=== PATIENT | female | born 1935 | race Caucasian/White ===

== ENCOUNTER 2018-07-17 13:19 | Inpatient (IN) | payer MEDICARE, MEDICAID ==
--- NOTE | 2018-07-17 13:58 | ED Physician Chart ---
ED Chief Complaint/HPI - Patient Information Date Seen:: 07/17/18 Time Seen:: 13:53 Chief Complaint:: right pain History of Present Illness:: this is an 83 yr old female with a complaint of right pain and swelling which was operated on june 05, 2018. This patient was sent from a senior care for an evaluation and treatment of her complaint. she has a history of dementia , diabetes,hypertension and hyperlipidema. Allergies:: Allergies Allergy/AdvReac Type Severity Reaction Status Date / Time naproxen [From Naprosyn] Allergy Verified 07/17/18 13:33 Complex B Allergy Uncoded 07/17/18 13:35 Vitals:: Vital Signs - 8 hr 07/17/18 13:35 Temp 98.2 F HR 62 RR 16 BP 132/56 O2 Sat % 96 Historian:: Medical Records Review:: Nurse's Note Reviewed, Old Chart Reviewed, Transfer documents Reviewed ED Review of Systems - Review of Systems General/Constitutional: No fever, No chills, No weight loss, No weakness, No diaphoresis, No edema, No loss of appetite Skin: No skin lesions, No rash, No bruising Head: No headache, No light-headedness Eyes: No loss of vision, No pain, No diplopia ENT: No earache, No nasal drainage, No sore throat, No tinnitus Neck: No neck pain, No swelling, No thyromegaly, No stiffness, No mass noted Cardio Vascular: No chest pain, No palpitations, No PND, No orthopnea, No edema Pulmonary: No SOB, No cough, No sputum, No wheezing GI: No nausea, No vomiting, No diarrhea, No pain, No melena, No hematochezia, No constipation, No hematemesis G/U: No dysuria, No frequency, No hematuria Musculoskeletal: Bone or joint pain (right hip pain), No back pain, No muscle pain Endocrine: No polyuria, No polydipsia Psychiatric: No prior psych history, No depression, No anxiety, No suicidal ideation Hematopoietic: No bruising, No lymphadenopathy Allergic/Immuno: No urticaria, No angioedema Neurological: No syncope, No focal symptoms, No weakness, No paresthesia, No headache, No seizure, No dizziness, No confusion, No vertigo ED Past Medical History - Past Medical History Obtainable: Yes Past Medical History: HTN, DM, CAD, CVA/TIA, Dyslipidemia, PUD/GERD, Dementia, Other (osteoporosis) Family History: None Social History: Non Smoker, No Alcohol, No Drug Use, Care Facility Surgical History: None, HIP Family Medical History - Family Member Father Living Status: ED Physical Exam - Physical Examination General/Constitutional: Awake, Well-developed, well-nourished, Alert, No distress, GCS 15, Non-toxic appearing, Ambulatory Head: Atraumatic Eyes: Lids, conjuctiva normal, PERRL, EOMI Skin: Nl inspection, No rash, No skin lesions, No ecchymosis, Well hydrated, No lymphadenopathy ENMT: External ears, nose nl, Nasal exam nl, Lips, teeth, gums nl Neck: Nontender, Full ROM w/o pain, No JVD, No nuchal rigidity, No bruit, No mass, No stridor Respiratory: Nl effort/Exclusion, Clear to Auscultation, No Wheeze/Rhonchi/Rales Cardio Vascular: RRR, No murmur, gallop, rubs, NL S1 S2 GI: No tenderness/rebounding/guarding, No organomegaly, No hernia, Normal BS's, Nondistended, No mass/bruits, No McBurney tenderness : No CVA tenderness Extremities: No tenderness or effusion, Full ROM, normal strength in all extremities, No edema, Normal digits & nails Other Extremities comments:: right hip area is a clean well healed incision site with an area of the most proximal end of the incision open draining yellow exudate is noted. on palpation no pain could be elicited. Neuro/Psych: Alert/oriented, DTR's symmetric, Normal sensory exam, Normal motor strength, Judgement/insight normal (slow respones and unclear), Mood normal, Normal gait, No focal deficits Misc: Normal back, No paraspinal tenderness ED Labs/Radiology/EKG Results - Radiology Results Results: chest x-ray = no acute disease noted. Comments:: ct scan of the right thigh = finding consistent with an infection of the incision site of the right thigh - EKG Interpretations EKG Time:: 13:55 Rate & Rhythm: rate 73, sinus [place]: left Intervals: all wide complexes with no ectopy ED Assessment - Assessment General Assessment: wound infection of a post-op incision site. ED Septic Shock - . Is Septic Shock (SBP<90, OR Lactate>4 mmol\L) present?: No - <6hrs of presentation: Vital Signs: Vital Signs - 8 hr 07/17/18 13:35 Temp 98.2 F HR 62 RR 16 BP 132/56 O2 Sat % 96 ED Reassessment (Disposition) - Reassessment Reassessment Condition:: Unchanged - Diagnosis Diagnosis:: right hip wound infection - Patient Disposition Discharge/Transfer:: Acute Care w/in this hosp Admitted to:: Med/Surg Admitting Medical Physician:: Cherelle Bella Condition at Disposition:: Unchanged
[2018-07-17 14:07] LABS: % BASOPHILS 0.6 % (0.0-2.0); % LYMPHOCYTES 16.9 % (20.0-50.0); % MONOCYTES 4.3 % (2.0-10.0); % NEUTROPHILS 73.2 % (40.0-80.0); BASOPHILE ABSOLUTE 0.1 Th/cumm (0-0.2); EOSINOPHILE ABSOLUTE 0.5 Th/cmm (0.1-0.4); HEMATOCRIT 36.1 % (41.0-60); HEMOGLOBIN 12.3 gm/dL (12-16); LYMPHOCYTE ABSOLUTE 1.5 Th/cmm (1.5-3.0); MEAN CELL VOLUME 89.7 fl (81-100); MEAN CORPUSCULAR HEMOGLOBIN 30.6 pg (27.0-31.0); MEAN CORPUSCULAR HGB CONC 34.1 pg (28.0-36.0); MEAN PLATELET VOLUME 7.4 fl; MONOCYTE ABSOLUTE 0.4 Th/cmm (0.3-1.0); NEUTROPHILE ABSOLUTE 6.5 Th/cmm (1.8-8.0); PLATELET COUNT 238 Th/cmm (150-400); RED BLOOD COUNT 4.02 Mil/cmm (3.80-5.20); RED CELL DISTRIBUTION WIDTH 13.7 % (11.5-20.0)
[2018-07-17 14:19] LABS: INR 1.03 (0.5-1.4); PROTHROMBIN TIME (TEST) 10.7 SECONDS (9.5-11.5)
[2018-07-17 14:30] LABS: ALBUMIN 3.4 gm/dL (3.7-5.3); ALKALINE PHOSPHATASE 131 U/L (34-104); BILIRUBIN,TOTAL 0.3 mg/dL (0.3-1.0); BUN - UREA NITROGEN 14 mg/dL (7-25); CALCIUM SERUM 9.2 mg/dL (8.6-10.3); CARBON DIOXIDE 25.7 mEq/L (21.0-31.0); CHLORIDE 102 mEq/L (98-107); CREATININE - SERUM 0.5 mg/dL (0.6-1.2); GLUCOSE 210 mg/dL (70-105); POTASSIUM SERUM 3.7 mEq/L (3.5-5.1); SGOT 15 U/L (13-39); SGPT/ALT 11 U/L (7-52); SODIUM SERUM 135 mEq/L (136-145); TOTAL PROTEIN,SERUM 6.9 gm/dL (6.0-8.3)
[2018-07-17] MEDS ORDERED: Dextrose 50% 50 mL Abboject IVP PRN (17:06)
[2018-07-17] MEDS ORDERED: POLYETHYLENE GLYCOL 3350 17 GM PACK PO PRN (17:06)
[2018-07-17] MEDS ORDERED: Acetaminophen 500 MG TAB PO PRN (17:06)
[2018-07-17] MEDS ORDERED: Magnesium Hydroxide (MOM) 30 mL UDC PO PRN (17:06)
[2018-07-17] MEDS ORDERED: ACETAMINOPHEN 650 MG PO PRN (17:06)
[2018-07-17] MEDS ORDERED: Fleet Enema 135 mL RC PRN (17:06)
[2018-07-17] MEDS ORDERED: Non-Formulary Item 1 EA (Atorvastatin Calcium [Lipitor] 20 MG) PO SCH (21:00)
[2018-07-17] MEDS ORDERED: INSULIN HUMAN REGULAR 100 UNITS/ML UNIT SUBQ SCH (21:00)
[2018-07-17] MEDS ORDERED: [UNRECOGNIZED DRUG - OTHER] SQ SCH (21:00)
[2018-07-17] MEDS ORDERED: INSULIN GLARGINE HUM REC ANLOG 10 UNIT SQ SCH (21:00)
[2018-07-17] MEDS: Morphine Sulfate 2 mg/mL 1mL Syr IVP SCH (22:05)
--- NOTE | 2018-07-17 23:39 | Consultation ---
Consult Note - Consult Note Service Date: 07/17/18 Consult Note: PHYSICIAN Consultation Note: Date of Admission: 07/17/18 Purpose of Consultation: Chief Complaint: History of Present Illness: Patient MAY SILVERMAN was admitted to location Medical[facility]Surgical Unit I with RIGHT HIP INFECTION. Past Medical History: Allergies Allergy/AdvReac Type Severity Reaction Status Date / Time naproxen [From Naprosyn] Allergy Verified 07/17/18 13:33 Complex B Allergy Uncoded 07/17/18 13:35 Vital Signs Temp 97 F 07/17/18 18:40 Pulse 69 07/17/18 18:40 Resp 18 07/17/18 18:40 BP 135/47 07/17/18 18:40 Pulse Ox 94 07/17/18 18:40 Intake & Output 07/17/18 07/17/18 07/18/18 06:59 18:59 06:59 Intake Total 250 Balance 250 Weight (lbs) 58.967 kg Intake: Intake, IV Amount 250 Vancomycin HCl 1 gm In 250 Sodium Chloride 0.9% 250 ml @ 165 mls/hr IV ONCE ONE Rx#:[id number] Other: Stool Characteristics Soft Brown Weight Source Estimated Laboratory Results - last 24 hr 07/17/18 07/17/18 07/17/18 13:58 13:58 13:58 WBC 9.0 RBC 4.02 Hgb 12.3 Hct 36.1 L MCV 89.7 MCH 30.6 MCHC Differential 34.1 RDW 13.7 Plt Count 238 MPV 7.4 Neutrophils % 73.2 Lymphocytes % 16.9 L Monocytes % 4.3 Eosinophils % 5.0 Basophils % 0.6 PT 10.7 INR 1.03 Sodium 135 L Potassium 3.7 Chloride 102 Carbon Dioxide 25.7 Anion Gap 11.0 BUN 14 Creatinine 0.5 L Est GFR ( Amer) TNP Est GFR (Non-Af Amer) TNP BUN/Creatinine Ratio 28.0 Glucose 210 H POC Glucose Calcium 9.2 Total Bilirubin 0.3 AST 15 ALT 11 Alkaline Phosphatase 131 H Troponin I Total Protein 6.9 Albumin 3.4 L Globulin 3.5 Albumin/Globulin Ratio 1.0 TSH 07/17/18 07/17/18 07/17/18 13:58 13:58 22:04 WBC RBC Hgb Hct MCV MCH MCHC Differential RDW Plt Count MPV Neutrophils % Lymphocytes % Monocytes % Eosinophils % Basophils % PT INR Sodium Potassium Chloride Carbon Dioxide Anion Gap BUN Creatinine Est GFR ( Amer) Est GFR (Non-Af Amer) BUN/Creatinine Ratio Glucose POC Glucose 187 H Calcium Total Bilirubin AST ALT Alkaline Phosphatase Troponin I 0.01 Total Protein Albumin Globulin Albumin/Globulin Ratio TSH 3.00 Home Medication Medication Instructions Recorded Type Acetaminophen [Pain Relief 8Hr] 650 mg PO Q4H PRN 07/17/18 History Acetaminophen [Pain Reliever] 500 mg PO Q4H PRN 07/17/18 History Ascorbic Acid 500 mg PO DAILY 07/17/18 History Aspirin [Adult Aspirin] 81 mg PO DAILY 07/17/18 History Atorvastatin Calcium [Lipitor] 20 mg PO HS 07/17/18 History Bisacodyl [Dulcolax 10 Mg Supp] 10 mg RC DAILY PRN 07/17/18 History Calcium Carbonate 2 tab PO DAILY 07/17/18 History Cholecalciferol (Vitamin D3) 1 gm PO DAILY 07/17/18 History [Cholecalciferol] Cyanocobalamin [Vitamin B12] 1,000 mcg PO DAILY 07/17/18 History Dextrose 50 % in Water [Dextrose 25 ml IV STAT PRN PRN 07/17/18 History 50 ml] Docusate Sodium [Colace] 100 mg PO DAILY 07/17/18 History Enalapril Maleate [Vasotec] 5 mg PO DAILY 07/17/18 History Famotidine [Pepcid] 20 mg PO DAILY 07/17/18 History Fleet Enema 135 ml RC Q2D PRN 07/17/18 History Folic Acid [Folate*] 1 mg PO DAILY 07/17/18 History Glucagon,Human Recombinant 1 mg IM STAT PRN PRN 07/17/18 History [Glucagon Emergency Kit] Hydrocodone/APAP 10 mg/325 mg 1 tab PO Q8H PRN 07/17/18 History [[place] 10 mg/325 mg] Insulin Glargine,Hum.rec.anlog 10 unit SQ HS 07/17/18 History [Basaglar Kwikpen U-100] Insulin Lispro [Admelog Solostar] 0 unit SQ ACHS PRN 07/17/18 History Magnesium Hydroxide [Milk of 30 ml PO DAILY PRN 07/17/18 History Magnesia] Multivitamin-Min/Iron/FA/Vit K 1 tab PO DAILY 07/17/18 History [Multi-Day Plus Minerals Tablet] Ondansetron [Zofran ODT] 4 mg PO Q6HR PRN 07/17/18 History Polyethylene Glycol 3350 1 gm PO BID PRN 07/17/18 History Current Medications Generic Name Dose Route Start Last Admin Trade Name Freq PRN Reason Stop Dose Admin Acetaminophen 500 mg 07/17/18 17:06 Tylenol Extra Strength PO 09/15/18 17:05 Q4H PRN Pain (Moderate) Ascorbic Acid 500 mg 07/18/18 09:00 Vitamin C PO 09/16/18 08:59 DAILY [facility] Aspirin 81 mg 07/18/18 09:00 Ecotrin PO 09/16/18 08:59 DAILY [facility] Bisacodyl 10 mg 07/17/18 17:06 Dulcolax 10 Mg Supp RC 09/15/18 17:05 DAILY PRN Constipation Calcium Carbonate 600 mg 07/18/18 09:00 Calcium Carb PO 09/16/18 08:59 DAILY [facility] Cyanocobalamin 1,000 mcg 07/18/18 09:00 Vitamin B12 PO 09/16/18 08:59 DAILY [facility] Dextrose 25 ml 07/17/18 17:06 D50w IVP 09/15/18 17:05 STAT PRN PRN low blood sugar Docusate Sodium 100 mg 07/18/18 09:00 Colace PO 09/16/18 08:59 DAILY [facility] Enalapril Maleate 5 mg 07/18/18 09:00 Vasotec PO 09/16/18 08:59 DAILY [facility] Famotidine 20 mg 07/18/18 09:00 Pepcid PO 09/16/18 08:59 DAILY [facility] Folic Acid 1 mg 07/18/18 09:00 Folate PO 09/16/18 08:59 DAILY [facility] Piperacillin Sod/Tazobactam 50 mls @ 100 mls/hr 07/18/18 00:00 Sod 3.375 gm/ Sodium Chloride IV 09/16/18 00:00 Q6HR [facility] Insulin Aspart 0 units 07/18/18 07:30 Novolog Insulin Sliding Scale SUBQ 09/16/18 07:29 ACHS [facility] Protocol Magnesium Hydroxide 30 ml 07/17/18 17:06 Milk Of Magnesia PO 09/15/18 17:05 DAILY PRN Constipation Miscellaneous 650 mg 07/17/18 17:06 Acetaminophen [Pain Relief 8hr] PO Q4H PRN Pain (Mild) Miscellaneous 20 mg 07/17/18 21:00 Atorvastatin Calcium [Lipitor] PO 09/15/18 20:59 HS [facility] Miscellaneous 1 gm 07/18/18 09:00 Cholecalciferol (Vitamin D3) [Cholecalciferol] PO 09/16/18 08:59 DAILY [facility] Miscellaneous 10 unit 07/17/18 21:00 Insulin Glargine,Hum.Rec.Anlog [Basaglar Kwikpen U-100] SQ 09/15/18 20:59 HS [facility] Miscellaneous 1 tab 07/18/18 09:00 Multivitamin-Min/Iron/Fa/Vit K [Multi-Day Plus Minerals Tablet] PO 09/16/18 08:59 DAILY [facility] Miscellaneous 1 gm 07/17/18 17:06 Polyethylene Glycol 3350 [Polyethylene Glycol 3350] PO BID PRN Constipation Morphine Sulfate 1 mg 07/17/18 21:00 07/17/18 22:05 Morphine IVP 09/15/18 20:59 Not Given Q8HR [facility] Ondansetron HCl 4 mg 07/17/18 17:06 Zofran Odt PO 09/15/18 17:05 Q6HR PRN nausea/vomiting Ondansetron HCl 4 mg 07/17/18 20:00 07/17/18 22:17 Zofran Odt PO 09/15/18 19:59 Not Given Q4HR [facility] Sodium Phosphate 135 ml 07/17/18 17:06 Fleet Enema RC 09/15/18 17:05 Q2D PRN Constipation Review of Systems: A 12 point ROS was reviewed with the pertinent positive and negatives noted in the HPI. Social History Smoking Status Never smoker Physical Exam: General: HEENT: Neck: Cardio: Respiratory: Abdominal: Genital/Urinary: Extremities: Neurological: Assessment: Plan: Signed, Gilbert Herrera M.D. [id number]
[2018-07-18] MEDS ORDERED: Piperacillin Sodium/Tazobact 3.375 gm Vial IV ONE ×2 (00:58→05:37)
[2018-07-18] MEDS: Morphine Sulfate 2 mg/mL 1mL Syr IVP SCH (05:57)
[2018-07-18] MEDS: INSULIN ASPART SLIDING SCALE 100 UNITS/ML UNIT SUBQ SCH ×4 (07:29→21:22)
[2018-07-18] MEDS ORDERED: Non-Formulary Item 1 EA (Multivitamin-Min/Iron/Fa/Vit K [Multi-Day Plus Minerals Tablet] 1 PO SCH (09:00)
[2018-07-18] MEDS ORDERED: CHOLECALCIFEROL 1 GM PO SCH (09:00)
[2018-07-18] MEDS: Multivitamin w/ Minerals Tab PO SCH (09:01)
--- NOTE | 2018-07-18 09:20 | Diagnostic Imaging Report ---
CHEST X-RAY: AP view INDICATION: Cough COMPARISON: None FINDINGS: Patient is mildly rotated. There is no focal consolidation or pleural effusions The heart is normal in size. Atherosclerosis of the aortic arch is noted. Degenerative changes of the spine are noted. IMPRESSION: No focal consolidation identified. Atherosclerotic vascular disease.
--- NOTE | 2018-07-18 09:56 | Diagnostic Imaging Report ---
CT right lower extremity without IV contrast History: Pain, rule out fracture around hip pain Comparison: None Technique/procedure: Axial images were obtained from the pelvis to the right knee joint without IV contrast. Reconstructions were made. Total DLP 1223, CTD I 18 Findings: Exam is limited due to lack of IV contrast. Distended urinary bladder is noted. There is probable diverticulosis. There are inflammatory changes seen along the right buttock and right lateral femoral region part extending to the postsurgical bed with inflammatory region and calcification formation ossification seen surrounding patient's intramedullary jonathan. There is evidence of intramedullary jonathan and interlocking screw fixation of a previous comminuted right femoral shaft fracture. There is diffuse surrounding areas of heterotopic ossification inflammatory changes along the fracture site. No definite evidence of hardware loosening. Degenerative changes of the knee joints are noted. Osteopenia is noted. Atherosclerosis is noted. Areas of muscle atrophy of the posterior thigh are noted. IMPRESSION: Evidence of intramedullary jonathan and locking screw fixation of comminuted right femoral shaft fracture with diffuse areas of heterotopic ossification and callus formation. The fracture lines are still visualized. Surrounding inflammatory changes of the right lateral thigh is noted at extending adjacent to the fracture site and regional muscles. The significance of this finding should be correlated clinically. Infectious or inflammatory process cannot be excluded and clinical correlation and short-term follow-up is needed. Degenerative changes. Atherosclerotic vascular disease. Distended bladder.
[2018-07-18] MEDS ORDERED: Morphine Sulfate 2 mg/mL 1mL Syr IVP PRN (10:40)
--- NOTE | 2018-07-18 11:21 | History & Physical ---
ADMIT DATE: 07/17/2018 The patient is well-known to me. An 83-year-old female patient from [facility]. The patient apparently had surgery operated on 06/05/2018. The patient developed erythema, tenderness over the surgical site, pus extruding from the area, cellulitis and rule out osteomyelitis. The patient came to the [facility] Emergency Room and was admitted. The patient also known to have history of hypertension, diabetes, hyperlipidemia and history of dementia. PAST MEDICAL HISTORY: As enumerated above, history of hypertension, coronary artery disease, history of CVA in the past, history of peptic ulcer disease, hyperlipidemia, dementia and osteoporosis. FAMILY HISTORY: Unremarkable. SOCIAL HISTORY: Nonsmoker, nondrinker. The patient lives in a retirement. PHYSICAL EXAMINATION: GENERAL: Awake, alert, elderly female. VITAL SIGNS: As noted in chart. HEAD: Normal. ENT: Normal. NECK: Supple, nontender. LUNGS: Clear. CARDIOVASCULAR SYSTEM: S1, S2 heard. ABDOMEN: Soft. Bowel sounds are heard. EXTREMITIES: The right hip area, the incision site is redness seen and exudate was noted. DIAGNOSES: Infected surgical wound, rule out osteomyelitis, history of recent surgery, history of hypertension, history of diabetes, history of TIA, history of hyperlipidemia. PLAN: The patient is being admitted. I will go ahead and give her IV antibiotic and Dr. Gilbert Herrera ID see the patient. Also, orthopedic doctor see the patient. I will follow the patient. JOB# [id number]
[2018-07-18 15:26] LABS: URINE SOURCE CLEAN C
[2018-07-18 15:31] LABS: URINE BILIRUBIN NEGATIVE (NEGATIVE); URINE BLOOD TRACE (NEGATIVE); URINE GLUCOSE (UA) NEGATIVE (NEGATIVE); URINE KETONE NEGATIVE (NEGATIVE); URINE LEUKOCYTE ESTERASE MODERATE (NEGATIVE); URINE MICROSCOPIC INDICATED? YES; URINE NITRATE POSITIVE (NEGATIVE); URINE PROTEIN NEGATIVE (NEGATIVE); URINE UROBILINOGEN 0.2 E.U./dL (0.2 - 1.0)
[2018-07-18 15:34] LABS: URINE CLARITY HAZY (CLEAR); URINE COLOR YELLOW
[2018-07-18 15:45] LABS: URINE BACTERIA MANY /hpf (NONE SEEN); URINE EPITHELIAL CELLS MODERATE /lpf (FEW)
[2018-07-18 17:16] LABS: % BASOPHILS 0.5 % (0.0-2.0); % EOSINOPHILS 5.6 % (0.0-5.0); % LYMPHOCYTES 21.4 % (20.0-50.0); % MONOCYTES 6.9 % (2.0-10.0); % NEUTROPHILS 65.6 % (40.0-80.0); EOSINOPHILE ABSOLUTE 0.4 Th/cmm (0.1-0.4); HEMATOCRIT 33.3 % (41.0-60); LYMPHOCYTE ABSOLUTE 1.5 Th/cmm (1.5-3.0); MEAN CELL VOLUME 90.5 fl (81-100); MEAN CORPUSCULAR HGB CONC 33.1 pg (28.0-36.0); MEAN PLATELET VOLUME 7.7 fl; MONOCYTE ABSOLUTE 0.5 Th/cmm (0.3-1.0); NEUTROPHILE ABSOLUTE 4.5 Th/cmm (1.8-8.0); PLATELET COUNT 228 Th/cmm (150-400); RED BLOOD COUNT 3.68 Mil/cmm (3.80-5.20); RED CELL DISTRIBUTION WIDTH 13.7 % (11.5-20.0); WHITE BLOOD COUNT 6.9 Th/cmm (4.8-10.8)
[2018-07-18 17:41] LABS: ALB/GLOB RATIO 1.1 (1.0-1.8); ALBUMIN 3.2 gm/dL (3.7-5.3); ALKALINE PHOSPHATASE 110 U/L (34-104); ANION GAP 9.1 (7.0-16.0); BILIRUBIN,TOTAL 0.3 mg/dL (0.3-1.0); BUN - UREA NITROGEN 16 mg/dL (7-25); CALCIUM SERUM 8.8 mg/dL (8.6-10.3); CARBON DIOXIDE 26.5 mEq/L (21.0-31.0); CHLORIDE 103 mEq/L (98-107); CREATININE - SERUM 0.8 mg/dL (0.6-1.2); GLUCOSE 223 mg/dL (70-105); MAGNESIUM 1.6 mg/dL (1.9-2.7); POTASSIUM SERUM 3.6 mEq/L (3.5-5.1); SGOT 15 U/L (13-39); SGPT/ALT 11 U/L (7-52); SODIUM SERUM 135 mEq/L (136-145); TOTAL PROTEIN,SERUM 6.1 gm/dL (6.0-8.3)
--- NOTE | 2018-07-18 20:27 | Consultation ---
Consult Note - Consult Note Service Date: 07/18/18 Referring Physician: Cherelle Bella Consult Note: PHYSICIAN Consultation Note: Date of Admission: 07/17/18 Purpose of Consultation: Right thigh surgical site infection Chief Complaint: Patient MAY SILVERMAN was admitted to location Medical/Surgical Unit I with RIGHT HIP INFECTION. History of Present Illness: 83-year-old female had ORIF performed at [facility] one month ago and now, there was pus coming out of upper part of the surgical incision. So she was sent to the ED for further evaluation. Vanco IV and Zosyn were started and ID consult was called for further antibiotic management. Past Medical History: DM2, HTN, Hyperlipidemia. Allergies Allergy/AdvReac Type Severity Reaction Status Date / Time naproxen [From Naprosyn] Allergy Verified 07/17/18 13:33 Complex B Allergy Uncoded 07/17/18 13:35 Vital Signs Temp 97.4 F 07/18/18 20:00 Pulse 57 07/18/18 20:00 Resp 18 07/18/18 20:00 BP 123/48 07/18/18 20:00 Pulse Ox 97 07/18/18 20:00 Intake & Output 07/18/18 07/18/18 07/19/18 06:59 18:59 06:59 Intake Total 300 850 50 Balance 300 850 50 Weight (lbs) 64.319 kg 63.957 kg Intake: Intake, IV Amount 300 100 50 Piperacillin Sodium/ 50 100 50 Tazobact 3.375 gm In Sodium Chloride 0.9% 50 ml @ 100 mls/hr IV Q6HR [facility] Rx#:[id number] Vancomycin HCl 1 gm In 250 Sodium Chloride 0.9% 250 ml @ 165 mls/hr IV ONCE ONE Rx#:[id number] Oral 750 Other: # Voids 4 Stool Characteristics Soft Soft Brown Brown Weight Source Bedscale Bedscale Laboratory Results - last 24 hr 07/17/18 07/18/18 07/18/18 22:04 06:19 11:55 WBC RBC Hgb Hct MCV MCH MCHC Differential RDW Plt Count MPV Neutrophils % Lymphocytes % Monocytes % Eosinophils % Basophils % Sodium Potassium Chloride Carbon Dioxide Anion Gap BUN Creatinine Est GFR ( Amer) Est GFR (Non-Af Amer) BUN/Creatinine Ratio Glucose POC Glucose 187 H 137 H 222 H Calcium Magnesium Total Bilirubin AST ALT Alkaline Phosphatase Total Protein Albumin Globulin Albumin/Globulin Ratio Urine Source Urine Color Urine Clarity Urine pH Ur Specific [place] Urine Protein Urine Glucose (UA) Urine Ketones Urine Blood Urine Nitrate Urine Bilirubin Urine Urobilinogen Ur Leukocyte Esterase Urine RBC Urine WBC Ur Epithelial Cells Urine Bacteria 07/18/18 07/18/18 07/18/18 15:14 16:33 16:40 WBC 6.9 RBC 3.68 L Hgb 11.0 L Hct 33.3 L MCV 90.5 MCH 30.0 MCHC Differential 33.1 RDW 13.7 Plt Count 228 MPV 7.7 Neutrophils % 65.6 Lymphocytes % 21.4 Monocytes % 6.9 Eosinophils % 5.6 H Basophils % 0.5 Sodium Potassium Chloride Carbon Dioxide Anion Gap BUN Creatinine Est GFR ( Amer) Est GFR (Non-Af Amer) BUN/Creatinine Ratio Glucose POC Glucose 232 H Calcium Magnesium Total Bilirubin AST ALT Alkaline Phosphatase Total Protein Albumin Globulin Albumin/Globulin Ratio Urine Source CLEAN C Urine Color YELLOW Urine Clarity HAZY Urine pH 6.0 Ur Specific [place] 1.020 Urine Protein NEGATIVE Urine Glucose (UA) NEGATIVE Urine Ketones NEGATIVE Urine Blood TRACE Urine Nitrate POSITIVE H Urine Bilirubin NEGATIVE Urine Urobilinogen 0.2 Ur Leukocyte Esterase MODERATE H Urine RBC 2-5 Urine WBC 10-25 H Ur Epithelial Cells MODERATE Urine Bacteria MANY H 07/18/18 16:40 WBC RBC Hgb Hct MCV MCH MCHC Differential RDW Plt Count MPV Neutrophils % Lymphocytes % Monocytes % Eosinophils % Basophils % Sodium 135 L Potassium 3.6 Chloride 103 Carbon Dioxide 26.5 Anion Gap 9.1 BUN 16 Creatinine 0.8 Est GFR ( Amer) TNP Est GFR (Non-Af Amer) TNP BUN/Creatinine Ratio 20.0 Glucose 223 H POC Glucose Calcium 8.8 Magnesium 1.6 L Total Bilirubin 0.3 AST 15 ALT 11 Alkaline Phosphatase 110 H Total Protein 6.1 Albumin 3.2 L Globulin 2.9 Albumin/Globulin Ratio 1.1 Urine Source Urine Color Urine Clarity Urine pH Ur Specific [place] Urine Protein Urine Glucose (UA) Urine Ketones Urine Blood Urine Nitrate Urine Bilirubin Urine Urobilinogen Ur Leukocyte Esterase Urine RBC Urine WBC Ur Epithelial Cells Urine Bacteria Home Medication Medication Instructions Recorded Type Acetaminophen [Pain Relief 8Hr] 650 mg PO Q4H PRN 07/17/18 History Acetaminophen [Pain Reliever] 500 mg PO Q4H PRN 07/17/18 History Ascorbic Acid 500 mg PO DAILY 07/17/18 History Aspirin [Adult Aspirin] 81 mg PO DAILY 07/17/18 History Atorvastatin Calcium [Lipitor] 20 mg PO HS 07/17/18 History Bisacodyl [Dulcolax 10 Mg Supp] 10 mg RC DAILY PRN 07/17/18 History Calcium Carbonate 2 tab PO DAILY 07/17/18 History Cholecalciferol (Vitamin D3) 1 gm PO DAILY 07/17/18 History [Cholecalciferol] Cyanocobalamin [Vitamin B12] 1,000 mcg PO DAILY 07/17/18 History Dextrose 50 % in Water [Dextrose 25 ml IV STAT PRN PRN 07/17/18 History 50 ml] Docusate Sodium [Colace] 100 mg PO DAILY 07/17/18 History Enalapril Maleate [Vasotec] 5 mg PO DAILY 07/17/18 History Famotidine [Pepcid] 20 mg PO DAILY 07/17/18 History Fleet Enema 135 ml RC Q2D PRN 07/17/18 History Folic Acid [Folate*] 1 mg PO DAILY 07/17/18 History Glucagon,Human Recombinant 1 mg IM STAT PRN PRN 07/17/18 History [Glucagon Emergency Kit] Hydrocodone/APAP 10 mg/325 mg 1 tab PO Q8H PRN 07/17/18 History [[place] 10 mg/325 mg] Insulin Glargine,Hum.rec.anlog 10 unit SQ HS 07/17/18 History [Basaglar Kwikpen U-100] Insulin Lispro [Admelog Solostar] 0 unit SQ ACHS PRN 07/17/18 History Magnesium Hydroxide [Milk of 30 ml PO DAILY PRN 07/17/18 History Magnesia] Multivitamin-Min/Iron/FA/Vit K 1 tab PO DAILY 07/17/18 History [Multi-Day Plus Minerals Tablet] Ondansetron [Zofran ODT] 4 mg PO Q6HR PRN 07/17/18 History Polyethylene Glycol 3350 1 gm PO BID PRN 07/17/18 History Current Medications Generic Name Dose Route Start Last Admin Trade Name Freq PRN Reason Stop Dose Admin Acetaminophen 500 mg 07/17/18 17:06 Tylenol Extra Strength PO 09/15/18 17:05 Q4H PRN Pain (Moderate) Ascorbic Acid 500 mg 07/18/18 09:00 09/09/18 09:01 Vitamin C PO 09/16/18 08:59 500 mg DAILY [facility] Administration Aspirin 81 mg 07/18/18 09:00 07/18/18 09:01 Ecotrin PO 09/16/18 08:59 81 mg DAILY [facility] Administration Atorvastatin Calcium 20 mg 07/18/18 21:00 Lipitor PO 09/16/18 20:59 HS [facility] Bisacodyl 10 mg 07/17/18 17:06 Dulcolax 10 Mg Supp RC 09/15/18 17:05 DAILY PRN Constipation Calcium Carbonate 600 mg 07/18/18 09:00 07/18/18 09:01 Calcium Carb PO 09/16/18 08:59 600 mg DAILY [facility] Administration Cholecalciferol 1,000 iu 07/18/18 11:00 07/18/18 11:10 Vitamin D3 PO 09/16/18 10:59 Not Given DAILY [facility] Dextrose 25 ml 07/17/18 17:06 D50w IVP 09/15/18 17:05 STAT PRN PRN low blood sugar Docusate Sodium 100 mg 07/18/18 09:00 07/18/18 09:02 Colace PO 09/16/18 08:59 100 mg DAILY [facility] Administration Enalapril Maleate 5 mg 07/18/18 09:00 07/18/18 09:02 Vasotec PO 09/16/18 08:59 5 mg DAILY [facility] Administration Famotidine 20 mg 07/18/18 09:00 07/18/18 09:01 Pepcid PO 09/16/18 08:59 20 mg DAILY [facility] Administration Folic Acid 1 mg 07/18/18 09:00 07/18/18 09:01 Folate PO 09/16/18 08:59 1 mg DAILY [facility] Administration Piperacillin Sod/Tazobactam 50 mls @ 100 mls/hr 07/18/18 00:00 07/18/18 19:14 Sod 3.375 gm/ Sodium Chloride IV 09/16/18 00:00 Infused Q6HR [facility] Infusion Vancomycin HCl 0.75 gm/ Sodium 250 mls @ 165 mls/hr 07/18/18 20:00 Chloride IV 09/16/18 19:59 Q24HR@2000 [facility] Insulin Aspart 0 units 07/18/18 07:30 07/18/18 17:34 Novolog Insulin Sliding Scale SUBQ 09/16/18 07:29 4 units ACHS [facility] Administration Protocol Insulin Detemir 10 units 07/18/18 21:00 Levemir Insulin SUBQ 09/16/18 20:59 HS [facility] Magnesium Hydroxide 30 ml 07/17/18 17:06 Milk Of Magnesia PO 09/15/18 17:05 DAILY PRN Constipation Miscellaneous 1 gm 07/17/18 17:06 Polyethylene Glycol 3350 [Polyethylene Glycol 3350] PO BID PRN Constipation Miscellaneous 1 ea 07/18/18 08:56 Vancomycin Iv Per Pharmacy 09/16/18 08:55 PRN PRN PROTOCOL Morphine Sulfate 1 mg 07/18/18 10:40 Morphine IVP 09/16/18 10:39 Q4HR PRN Pain (Severe) Ondansetron HCl 4 mg 07/18/18 10:47 Zofran Odt PO 09/16/18 10:46 Q6H PRN Nausea / Vomiting Sodium Phosphate 135 ml 07/17/18 17:06 Fleet Enema RC 09/15/18 17:05 Q2D PRN Constipation Review of Systems: A 12 point ROS was reviewed with the pertinent positive and negatives noted in the HPI. General/Constitutional: No fever, No chills, No weight loss, No weakness, No diaphoresis, No edema, No loss of appetite Skin: No skin lesions, No rash, No bruising. New healing surgical incision on right thigh with draining pus at the upper end. Head: No headache, No light-headedness Eyes: No loss of vision, No pain, No diplopia ENT: No earache, No nasal drainage, No sore throat, No tinnitus Neck: No neck pain, No swelling, No thyromegaly, No stiffness, No mass noted Cardio Vascular: No chest pain, No palpitations, No PND, No orthopnea, No edema Pulmonary: No SOB, No cough, No sputum, No wheezing GI: No nausea, No vomiting, No diarrhea, No pain, No melena, No hematochezia, No constipation, No hematemesis G/U: No dysuria, No frequency, No hematuria Musculoskeletal: Bone or joint pain (right hip pain), No back pain, No muscle pain Endocrine: No polyuria, No polydipsia Psychiatric: No prior psych history, No depression, No anxiety, No suicidal ideation Hematopoietic: No bruising, No lymphadenopathy Allergic/Immuno: No urticaria, No angioedema Neurological: No syncope, No focal symptoms, No weakness, No paresthesia, No headache, No seizure, No dizziness, No confusion, No vertigo. Social History Smoking Status Never smoker Family Medical History noncontributory. Physical Exam: General: Comfortable. WN WD, HEENT: Head NC NT. Oral cavity: moist pink tongue. Eyes: No pallor . No Icterus. Pupil PERRLA. EOMI. Neck: Supple, no JVD Cardio: S1 and S2 WNL Respiratory: CTAP Abdominal: soft NT ND BS present Genital/Urinary: Extremities: right thigh has long surgical incision intact, healing well in most of the part except at the upper end, with presence of pus on milking. There is no erythema. Neurological: AAOx3. Assessment: 1, right hip surgical site infection with cellulitis. 2. 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 3. DM2 4. HTN. 5. Hyperlipidemia. Plan: Continue vanco IV and zosyn,. as per ortho senior staff consultant. Thank you, Dr Bella for involving me in taking care of this patient. Signed, Gilbert Herrera M.D. [id number]
[2018-07-18] MEDS: Atorvastatin Calcium 10 MG TAB PO SCH (20:38)
[2018-07-18] MEDS: Insulin Detemir 100 units/mL 10mL Vial SUBQ SCH (21:22)
--- NOTE | 2018-07-19 01:25 | Consultation ---
DATE OF CONSULTATION: 07/18/2018 ORTHOPEDIC SURGERY CONSULTATION HISTORY OF PRESENT ILLNESS: The patient is an 83-year-old lady admitted to [facility] on 07/17/2018 with a diagnosis of infection, right hip. The patient was interviewed and examined with the help of stoner personnel who are bilingual in [place] and Japanese. She stated she had surgery to "fix" her broken right thigh in [facility] in May 2018. She had been living at her facility up here and had her skin kleber removed from her wound recently. She presently is not complaining of pain. She stated she was not given any restrictions as far as walking and weightbearing and has been walking and getting around. PAST HISTORY: The chart indicates she has had a CVA in the past. She also carries diagnoses of hypertension, coronary artery disease, hyperlipidemia, osteoporosis, dementia. PHYSICAL EXAMINATION: EXTREMITIES: The patient was examined in her hospital room at [facility]. She was able to stand with light assistance. She did not experience any pain. Inspection of her wound on the lateral aspect of the right thigh showed the wound to be well healed at the very proximal extent of the incision/wound. There was slight redness - she thinks from the kleber. I cannot express any exudate or pus. There is no dressing in place and the wound is dry. There is no tenderness to palpation. Movement of her right hip is somewhat limited at 50-60% of normal. Strength in the right leg is reduced compared to the left. LABORATORY RESULTS: WBC 9000, hemoglobin 12.3. Differential count is normal. IMAGING STUDIES: A CT study of the right thigh in the PACS system, the fracture of the femur is in excellent position and healing. There is an intramedullary jonathan with 2 interlocking screws proximally and 2 interlocking screws distally. The proximal tip of the jonathan is not protruding so as to cause problems with skin, it all looks well. ORTHOPEDIC DIAGNOSES: Status post open reduction internal fixation with insertion of intramedullary jonathan, right femur in May. 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 RECOMMENDATIONS: The incision might well have been irritated from the kleber as they were left in an excessive period of time. Presently, she looks like the infection is under control, probably from antibiotics. She might benefit from warm compresses with Epsom salts to attempt to localize or draw any exudate out of the wound, even though it is presently healed over and dry. I see no need for exploration or surgery at this point. I will see her again at your request if her condition changes ____ worse. Thank you for this interesting referral. JOB# [id number]
[2018-07-19] MEDS: INSULIN ASPART SLIDING SCALE 100 UNITS/ML UNIT SUBQ SCH ×4 (06:30→20:36)
[2018-07-19] MEDS: Multivitamin w/ Minerals Tab PO SCH (09:09)
[2018-07-19] MEDS ORDERED: VTE Chemical Prophylaxis Screen/Admission MC PRN (12:14)
[2018-07-19] MEDS ORDERED: Probiotic Screen MC PRN (12:36)
--- NOTE | 2018-07-19 13:39 | Infectious Disease Prog Note ---
Infectious Disease Subjective - Review of Systems Service Date: 07/19/18 Subjective: There is no new change, no fever. Infectious Disease Objective - Results Result Diagrams: 07/18/18 16:40 07/18/18 16:40 Recent Labs: Laboratory Last Values WBC 6.9 Th/cmm (4.8-10.8) 07/18/18 16:40 RBC 3.68 Mil/cmm (3.80-5.20) L 07/18/18 16:40 Hgb 11.0 gm/dL (12-16) L 07/18/18 16:40 Hct 33.3 % (41.0-60) L 07/18/18 16:40 MCV 90.5 fl (81-100) 07/18/18 16:40 MCH 30.0 pg (27.0-31.0) 07/18/18 16:40 MCHC Differential 33.1 pg (28.0-36.0) 07/18/18 16:40 RDW 13.7 % (11.5-20.0) 07/18/18 16:40 Plt Count 228 Th/cmm (150-400) 07/18/18 16:40 MPV 7.7 fl 07/18/18 16:40 Neutrophils % 65.6 % (40.0-80.0) 07/18/18 16:40 Lymphocytes % 21.4 % (20.0-50.0) 07/18/18 16:40 Monocytes % 6.9 % (2.0-10.0) 07/18/18 16:40 Eosinophils % 5.6 % (0.0-5.0) H 07/18/18 16:40 Basophils % 0.5 % (0.0-2.0) 07/18/18 16:40 PT 10.7 SECONDS (9.5-11.5) 07/17/18 13:58 INR 1.03 (0.5-1.4) 07/17/18 13:58 Sodium 135 mEq/L (136-145) L 07/18/18 16:40 Potassium 3.6 mEq/L (3.5-5.1) 07/18/18 16:40 Chloride 103 mEq/L (98-107) 07/18/18 16:40 Carbon Dioxide 26.5 mEq/L (21.0-31.0) 07/18/18 16:40 Anion Gap 9.1 (7.0-16.0) 07/18/18 16:40 BUN 16 mg/dL (7-25) 07/18/18 16:40 Creatinine 0.8 mg/dL (0.6-1.2) 07/18/18 16:40 Est GFR ( Amer) TNP 07/18/18 16:40 Est GFR (Non-Af Amer) TNP 07/18/18 16:40 BUN/Creatinine Ratio 20.0 07/18/18 16:40 Glucose 223 mg/dL (70-105) H 07/18/18 16:40 POC Glucose 149 MG/DL (70 - 105) H 07/19/18 11:35 Calcium 8.8 mg/dL (8.6-10.3) 07/18/18 16:40 Magnesium 1.6 mg/dL (1.9-2.7) L 07/18/18 16:40 Total Bilirubin 0.3 mg/dL (0.3-1.0) 07/18/18 16:40 AST 15 U/L (13-39) 07/18/18 16:40 ALT 11 U/L (7-52) 07/18/18 16:40 Alkaline Phosphatase 110 U/L (34-104) H 07/18/18 16:40 Troponin I 0.01 ng/mL (0.01-0.05) 07/17/18 13:58 Total Protein 6.1 gm/dL (6.0-8.3) 07/18/18 16:40 Albumin 3.2 gm/dL (3.7-5.3) L 07/18/18 16:40 Globulin 2.9 gm/dL 07/18/18 16:40 Albumin/Globulin Ratio 1.1 (1.0-1.8) 07/18/18 16:40 TSH 3.00 uIU/ml (0.34-5.60) 07/17/18 13:58 Urine Source CLEAN C 07/18/18 15:14 Urine Color YELLOW 07/18/18 15:14 Urine Clarity HAZY (CLEAR) 07/18/18 15:14 Urine pH 6.0 (4.6 - 8.0) 07/18/18 15:14 Ur Specific [place] 1.020 (1.005-1.030) 07/18/18 15:14 Urine Protein NEGATIVE mg/dL (NEGATIVE) 07/18/18 15:14 Urine Glucose (UA) NEGATIVE mg/dL (NEGATIVE) 07/18/18 15:14 Urine Ketones NEGATIVE mg/dL (NEGATIVE) 07/18/18 15:14 Urine Blood TRACE (NEGATIVE) 07/18/18 15:14 Urine Nitrate POSITIVE (NEGATIVE) H 07/18/18 15:14 Urine Bilirubin NEGATIVE (NEGATIVE) 07/18/18 15:14 Urine Urobilinogen 0.2 E.U./dL (0.2 - 1.0) 07/18/18 15:14 Ur Leukocyte Esterase MODERATE (NEGATIVE) H 07/18/18 15:14 Urine RBC 2-5 /hpf (0-5) 07/18/18 15:14 Urine WBC 10-25 /hpf (0-5) H 07/18/18 15:14 Ur Epithelial Cells MODERATE /lpf (FEW) 07/18/18 15:14 Urine Bacteria MANY /hpf (NONE SEEN) H 07/18/18 15:14 - Physical Exam Vitals and I&O: Vital Signs Temp 96.8 F 07/19/18 12:08 Pulse 52 07/19/18 12:08 Resp 17 07/19/18 12:08 BP 130/40 07/19/18 12:08 Pulse Ox 97 07/19/18 12:08 Intake & Output 07/18/18 07/19/18 07/19/18 18:59 06:59 18:59 Intake Total 850 100 50 Balance 850 100 50 Weight (lbs) 63.957 kg 65.544 kg Intake: Intake, IV Amount 100 100 50 Piperacillin Sodium/ 100 100 50 Tazobact 3.375 gm In Sodium Chloride 0.9% 50 ml @ 100 mls/hr IV Q6HR [facility] Rx#:[id number] Oral 750 Other: # Voids 4 2 # Bowel Movements 1 Stool Characteristics Soft Soft Brown Brown Weight Source Bedscale Bedscale Active Medications: Current Medications Acetaminophen (Tylenol Extra Strength) 500 mg PO Q4H PRN PRN Reason: Pain (Moderate) Stop: 09/15/18 17:05 Ascorbic Acid (Vitamin C) 500 mg PO DAILY [facility] Stop: 09/16/18 08:59 Last Admin: 07/19/18 09:09 Dose: 500 mg Aspirin (Ecotrin) 81 mg PO DAILY [facility] Stop: 09/16/18 08:59 Last Admin: 07/19/18 09:08 Dose: 81 mg Atorvastatin Calcium (Lipitor) 20 mg PO HS [facility] Stop: 09/16/18 20:59 Last Admin: 07/18/18 20:38 Dose: 20 mg Bisacodyl (Dulcolax 10 Mg Supp) 10 mg RC DAILY PRN PRN Reason: Constipation Stop: 09/15/18 17:05 Calcium Carbonate (Calcium Carb) 600 mg PO DAILY [facility] Stop: 09/16/18 08:59 Last Admin: 07/19/18 09:09 Dose: 600 mg Cholecalciferol (Vitamin D3) 1,000 iu PO DAILY [facility] Stop: 09/16/18 10:59 Last Admin: 07/19/18 09:08 Dose: 1,000 iu Dextrose (D50w) 25 ml IVP STAT PRN PRN PRN Reason: low blood sugar Stop: 09/15/18 17:05 Docusate Sodium (Colace) 100 mg PO DAILY [facility] Stop: 09/16/18 08:59 Last Admin: 07/19/18 09:09 Dose: 100 mg Enalapril Maleate (Vasotec) 5 mg PO DAILY [facility] Stop: 09/16/18 08:59 Last Admin: 07/19/18 09:09 Dose: 5 mg Famotidine (Pepcid) 20 mg PO DAILY [facility] Stop: 09/16/18 08:59 Last Admin: 07/19/18 09:08 Dose: 20 mg Folic Acid (Folate) 1 mg PO DAILY [facility] Stop: 09/16/18 08:59 Last Admin: 07/19/18 09:09 Dose: 1 mg Heparin Sodium (Porcine) (Heparin) 5,000 units SUBQ Q12HR [facility] Stop: 09/17/18 20:59 Piperacillin Sod/Tazobactam (Sod 3.375 gm/ Sodium Chloride) 50 mls @ 100 mls/ hr IV Q6HR [facility] Stop: 09/16/18 00:00 Last Admin: 07/19/18 12:35 Dose: 12.5 mls/hr Vancomycin HCl 0.75 gm/ Sodium (Chloride) 250 mls @ 165 mls/hr IV Q24HR@2000 [facility] Stop: 09/16/18 19:59 Last Admin: 07/18/18 20:36 Dose: 165 mls/hr Insulin Aspart (Novolog Insulin Sliding Scale) 0 units SUBQ ACHS [facility]; Protocol Stop: 09/16/18 07:29 Last Admin: 07/19/18 11:54 Dose: Not Given Insulin Detemir (Levemir Insulin) 10 units SUBQ HS [facility] Stop: 09/16/18 20:59 Last Admin: 07/18/18 21:22 Dose: Not Given Lactobacillus Rhamnosus (Culturelle 15b) 1 each PO DAILY [facility] Stop: 09/17/18 13:59 Magnesium Hydroxide (Milk Of Magnesia) 30 ml PO DAILY PRN PRN Reason: Constipation Stop: 09/15/18 17:05 Miscellaneous (Vancomycin Iv Per Pharmacy) 1 ea PRN PRN PRN Reason: PROTOCOL Stop: 09/16/18 08:55 Miscellaneous (Vte Chemical Prophylaxis Screen/ Admission) 1 ea PRN PRN PRN Reason: PROTOCOL Stop: 09/17/18 12:13 Miscellaneous (Probiotic Screen) 1 ea PRN PRN PRN Reason: PROTOCOL Stop: 09/17/18 12:35 Morphine Sulfate (Morphine) 1 mg IVP Q4HR PRN PRN Reason: Pain (Severe) Stop: 09/16/18 10:39 Ondansetron HCl (Zofran Odt) 4 mg PO Q6H PRN PRN Reason: Nausea / Vomiting Stop: 09/16/18 10:46 Polyethylene Glycol (Miralax) 17 gm PO BID PRN PRN Reason: Constipation Sodium Phosphate (Fleet Enema) 135 ml RC Q2D PRN PRN Reason: Constipation Stop: 09/15/18 17:05 General: no acute distress, well developed, well nourished HEENT: atraumatic, normocephalic, PERRLA, EOMI Neck: supple, no thyromegaly Cardiovascular: S1S2, regular Lungs: clear to auscultation bilaterally, clear to percussion Abdomen: soft, no tender, no distended Extremities: other (right hip wound is healing.), no cyanosis, no clubbing, no edema Neurological: awake, alert, oriented Skin: intact Infectious Disease Assmt/Plan - Assessment Assessment: 1, right hip surgical site infection with cellulitis. Wound culture grew E coli. Gram stain GNR and GPC in chains. 2. 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 3. DM2 4. HTN. 5. Hyperlipidemia. - Plan Plan: Continue vanco IV and zosyn. will see the final culture report and decide final antibiotics for 6 weeks total.
[2018-07-19] MEDS: Lactobacillus Rhamnosus GG 15 Billion CFU CAP.SPRINK PO SCH (13:48)
--- NOTE | 2018-07-19 15:33 | General Progress Note ---
Subjective - Review of Systems Events since last encounter: no new change no fever Objective - Results Result Diagrams: 07/18/18 16:40 07/18/18 16:40 Recent Labs: Laboratory Last Values WBC 6.9 Th/cmm (4.8-10.8) 07/18/18 16:40 RBC 3.68 Mil/cmm (3.80-5.20) L 07/18/18 16:40 Hgb 11.0 gm/dL (12-16) L 07/18/18 16:40 Hct 33.3 % (41.0-60) L 07/18/18 16:40 MCV 90.5 fl (81-100) 07/18/18 16:40 MCH 30.0 pg (27.0-31.0) 07/18/18 16:40 MCHC Differential 33.1 pg (28.0-36.0) 07/18/18 16:40 RDW 13.7 % (11.5-20.0) 07/18/18 16:40 Plt Count 228 Th/cmm (150-400) 07/18/18 16:40 MPV 7.7 fl 07/18/18 16:40 Neutrophils % 65.6 % (40.0-80.0) 07/18/18 16:40 Lymphocytes % 21.4 % (20.0-50.0) 07/18/18 16:40 Monocytes % 6.9 % (2.0-10.0) 07/18/18 16:40 Eosinophils % 5.6 % (0.0-5.0) H 07/18/18 16:40 Basophils % 0.5 % (0.0-2.0) 07/18/18 16:40 PT 10.7 SECONDS (9.5-11.5) 07/17/18 13:58 INR 1.03 (0.5-1.4) 07/17/18 13:58 Sodium 135 mEq/L (136-145) L 07/18/18 16:40 Potassium 3.6 mEq/L (3.5-5.1) 07/18/18 16:40 Chloride 103 mEq/L (98-107) 07/18/18 16:40 Carbon Dioxide 26.5 mEq/L (21.0-31.0) 07/18/18 16:40 Anion Gap 9.1 (7.0-16.0) 07/18/18 16:40 BUN 16 mg/dL (7-25) 07/18/18 16:40 Creatinine 0.8 mg/dL (0.6-1.2) 07/18/18 16:40 Est GFR ( Amer) TNP 07/18/18 16:40 Est GFR (Non-Af Amer) TNP 07/18/18 16:40 BUN/Creatinine Ratio 20.0 07/18/18 16:40 Glucose 223 mg/dL (70-105) H 07/18/18 16:40 POC Glucose 149 MG/DL (70 - 105) H 07/19/18 11:35 Calcium 8.8 mg/dL (8.6-10.3) 07/18/18 16:40 Magnesium 1.6 mg/dL (1.9-2.7) L 07/18/18 16:40 Total Bilirubin 0.3 mg/dL (0.3-1.0) 07/18/18 16:40 AST 15 U/L (13-39) 07/18/18 16:40 ALT 11 U/L (7-52) 07/18/18 16:40 Alkaline Phosphatase 110 U/L (34-104) H 07/18/18 16:40 Troponin I 0.01 ng/mL (0.01-0.05) 07/17/18 13:58 Total Protein 6.1 gm/dL (6.0-8.3) 07/18/18 16:40 Albumin 3.2 gm/dL (3.7-5.3) L 07/18/18 16:40 Globulin 2.9 gm/dL 07/18/18 16:40 Albumin/Globulin Ratio 1.1 (1.0-1.8) 07/18/18 16:40 TSH 3.00 uIU/ml (0.34-5.60) 07/17/18 13:58 Urine Source CLEAN C 07/18/18 15:14 Urine Color YELLOW 07/18/18 15:14 Urine Clarity HAZY (CLEAR) 07/18/18 15:14 Urine pH 6.0 (4.6 - 8.0) 07/18/18 15:14 Ur Specific [place] 1.020 (1.005-1.030) 07/18/18 15:14 Urine Protein NEGATIVE mg/dL (NEGATIVE) 07/18/18 15:14 Urine Glucose (UA) NEGATIVE mg/dL (NEGATIVE) 07/18/18 15:14 Urine Ketones NEGATIVE mg/dL (NEGATIVE) 07/18/18 15:14 Urine Blood TRACE (NEGATIVE) 07/18/18 15:14 Urine Nitrate POSITIVE (NEGATIVE) H 07/18/18 15:14 Urine Bilirubin NEGATIVE (NEGATIVE) 07/18/18 15:14 Urine Urobilinogen 0.2 E.U./dL (0.2 - 1.0) 07/18/18 15:14 Ur Leukocyte Esterase MODERATE (NEGATIVE) H 07/18/18 15:14 Urine RBC 2-5 /hpf (0-5) 07/18/18 15:14 Urine WBC 10-25 /hpf (0-5) H 07/18/18 15:14 Ur Epithelial Cells MODERATE /lpf (FEW) 07/18/18 15:14 Urine Bacteria MANY /hpf (NONE SEEN) H 07/18/18 15:14 - Physical Exam Vitals and I&O: Vital Signs Temp 96.8 F 07/19/18 12:08 Pulse 52 07/19/18 12:08 Resp 17 07/19/18 12:08 BP 130/40 07/19/18 12:08 Pulse Ox 97 07/19/18 12:08 Intake & Output 07/18/18 07/19/18 07/19/18 18:59 06:59 18:59 Intake Total 850 100 50 Balance 850 100 50 Weight (lbs) 63.957 kg 65.544 kg Intake: Intake, IV Amount 100 100 50 Piperacillin Sodium/ 100 100 50 Tazobact 3.375 gm In Sodium Chloride 0.9% 50 ml @ 100 mls/hr IV Q6HR [facility] Rx#:[id number] Oral 750 Other: # Voids 4 2 # Bowel Movements 1 Stool Characteristics Soft Soft Brown Brown Weight Source Bedscale Bedscale Active Medications: Current Medications Acetaminophen (Tylenol Extra Strength) 500 mg PO Q4H PRN PRN Reason: Pain (Moderate) Stop: 09/15/18 17:05 Ascorbic Acid (Vitamin C) 500 mg PO DAILY [facility] Stop: 09/16/18 08:59 Last Admin: 07/19/18 09:09 Dose: 500 mg Aspirin (Ecotrin) 81 mg PO DAILY [facility] Stop: 09/16/18 08:59 Last Admin: 07/19/18 09:08 Dose: 81 mg Atorvastatin Calcium (Lipitor) 20 mg PO HS [facility] Stop: 09/16/18 20:59 Last Admin: 07/18/18 20:38 Dose: 20 mg Bisacodyl (Dulcolax 10 Mg Supp) 10 mg RC DAILY PRN PRN Reason: Constipation Stop: 09/15/18 17:05 Calcium Carbonate (Calcium Carb) 600 mg PO DAILY [facility] Stop: 09/16/18 08:59 Last Admin: 07/19/18 09:09 Dose: 600 mg Cholecalciferol (Vitamin D3) 1,000 iu PO DAILY [facility] Stop: 09/16/18 10:59 Last Admin: 07/19/18 09:08 Dose: 1,000 iu Dextrose (D50w) 25 ml IVP STAT PRN PRN PRN Reason: low blood sugar Stop: 09/15/18 17:05 Docusate Sodium (Colace) 100 mg PO DAILY [facility] Stop: 09/16/18 08:59 Last Admin: 07/19/18 09:09 Dose: 100 mg Enalapril Maleate (Vasotec) 5 mg PO DAILY [facility] Stop: 09/16/18 08:59 Last Admin: 07/19/18 09:09 Dose: 5 mg Famotidine (Pepcid) 20 mg PO DAILY [facility] Stop: 09/16/18 08:59 Last Admin: 07/19/18 09:08 Dose: 20 mg Folic Acid (Folate) 1 mg PO DAILY [facility] Stop: 09/16/18 08:59 Last Admin: 07/19/18 09:09 Dose: 1 mg Heparin Sodium (Porcine) (Heparin) 5,000 units SUBQ Q12HR [facility] Stop: 09/17/18 20:59 Piperacillin Sod/Tazobactam (Sod 3.375 gm/ Sodium Chloride) 50 mls @ 100 mls/ hr IV Q6HR [facility] Stop: 09/16/18 00:00 Last Admin: 07/19/18 12:35 Dose: 12.5 mls/hr Vancomycin HCl 0.75 gm/ Sodium (Chloride) 250 mls @ 165 mls/hr IV Q24HR@2000 [facility] Stop: 09/16/18 19:59 Last Admin: 07/18/18 20:36 Dose: 165 mls/hr Insulin Aspart (Novolog Insulin Sliding Scale) 0 units SUBQ ACHS [facility]; Protocol Stop: 09/16/18 07:29 Last Admin: 07/19/18 11:54 Dose: Not Given Insulin Detemir (Levemir Insulin) 10 units SUBQ HS [facility] Stop: 09/16/18 20:59 Last Admin: 07/18/18 21:22 Dose: Not Given Lactobacillus Rhamnosus (Culturelle 15b) 1 each PO DAILY [facility] Stop: 09/17/18 13:59 Last Admin: 07/19/18 13:48 Dose: 1 each Magnesium Hydroxide (Milk Of Magnesia) 30 ml PO DAILY PRN PRN Reason: Constipation Stop: 09/15/18 17:05 Miscellaneous (Vancomycin Iv Per Pharmacy) 1 ea PRN PRN PRN Reason: PROTOCOL Stop: 09/16/18 08:55 Miscellaneous (Vte Chemical Prophylaxis Screen/ Admission) 1 ea PRN PRN PRN Reason: PROTOCOL Stop: 09/17/18 12:13 Miscellaneous (Probiotic Screen) 1 ea PRN PRN PRN Reason: PROTOCOL Stop: 09/17/18 12:35 Morphine Sulfate (Morphine) 1 mg IVP Q4HR PRN PRN Reason: Pain (Severe) Stop: 09/16/18 10:39 Ondansetron HCl (Zofran Odt) 4 mg PO Q6H PRN PRN Reason: Nausea / Vomiting Stop: 09/16/18 10:46 Polyethylene Glycol (Miralax) 17 gm PO BID PRN PRN Reason: Constipation Sodium Phosphate (Fleet Enema) 135 ml RC Q2D PRN PRN Reason: Constipation Stop: 09/15/18 17:05
[2018-07-19] MEDS: Atorvastatin Calcium 10 MG TAB PO SCH (20:30)
[2018-07-19] MEDS: Insulin Detemir 100 units/mL 10mL Vial SUBQ SCH (20:37)
[2018-07-20] MEDS: INSULIN ASPART SLIDING SCALE 100 UNITS/ML UNIT SUBQ SCH ×4 (09:01→20:33)
[2018-07-20] MEDS: Lactobacillus Rhamnosus GG 15 Billion CFU CAP.SPRINK PO SCH (09:02)
[2018-07-20] MEDS: Multivitamin w/ Minerals Tab PO SCH (09:02)
[2018-07-20] MEDS: Atorvastatin Calcium 10 MG TAB PO SCH (20:31)
[2018-07-20] MEDS: Insulin Detemir 100 units/mL 10mL Vial SUBQ SCH (20:32)
--- NOTE | 2018-07-20 23:44 | Infectious Disease Prog Note ---
Infectious Disease Subjective - Review of Systems Service Date: 07/20/18 Subjective: There is no new change, no fever. Infectious Disease Objective - Results Result Diagrams: 07/18/18 16:40 07/20/18 19:40 Recent Labs: Laboratory Last Values WBC 6.9 Th/cmm (4.8-10.8) 07/18/18 16:40 RBC 3.68 Mil/cmm (3.80-5.20) L 07/18/18 16:40 Hgb 11.0 gm/dL (12-16) L 07/18/18 16:40 Hct 33.3 % (41.0-60) L 07/18/18 16:40 MCV 90.5 fl (81-100) 07/18/18 16:40 MCH 30.0 pg (27.0-31.0) 07/18/18 16:40 MCHC Differential 33.1 pg (28.0-36.0) 07/18/18 16:40 RDW 13.7 % (11.5-20.0) 07/18/18 16:40 Plt Count 228 Th/cmm (150-400) 07/18/18 16:40 MPV 7.7 fl 07/18/18 16:40 Neutrophils % 65.6 % (40.0-80.0) 07/18/18 16:40 Lymphocytes % 21.4 % (20.0-50.0) 07/18/18 16:40 Monocytes % 6.9 % (2.0-10.0) 07/18/18 16:40 Eosinophils % 5.6 % (0.0-5.0) H 07/18/18 16:40 Basophils % 0.5 % (0.0-2.0) 07/18/18 16:40 PT 10.7 SECONDS (9.5-11.5) 07/17/18 13:58 INR 1.03 (0.5-1.4) 07/17/18 13:58 Sodium 135 mEq/L (136-145) L 07/18/18 16:40 Potassium 3.6 mEq/L (3.5-5.1) 07/18/18 16:40 Chloride 103 mEq/L (98-107) 07/18/18 16:40 Carbon Dioxide 26.5 mEq/L (21.0-31.0) 07/18/18 16:40 Anion Gap 9.1 (7.0-16.0) 07/18/18 16:40 BUN 14 mg/dL (7-25) 07/20/18 19:40 Creatinine 0.7 mg/dL (0.6-1.2) 07/20/18 19:40 Est GFR ( Amer) TNP 07/18/18 16:40 Est GFR (Non-Af Amer) TNP 07/18/18 16:40 BUN/Creatinine Ratio 20.0 07/18/18 16:40 Glucose 223 mg/dL (70-105) H 07/18/18 16:40 POC Glucose 247 MG/DL (70 - 105) H 07/20/18 20:18 Calcium 8.8 mg/dL (8.6-10.3) 07/18/18 16:40 Magnesium 1.6 mg/dL (1.9-2.7) L 07/18/18 16:40 Total Bilirubin 0.3 mg/dL (0.3-1.0) 07/18/18 16:40 AST 15 U/L (13-39) 07/18/18 16:40 ALT 11 U/L (7-52) 07/18/18 16:40 Alkaline Phosphatase 110 U/L (34-104) H 07/18/18 16:40 Troponin I 0.01 ng/mL (0.01-0.05) 07/17/18 13:58 Total Protein 6.1 gm/dL (6.0-8.3) 07/18/18 16:40 Albumin 3.2 gm/dL (3.7-5.3) L 07/18/18 16:40 Globulin 2.9 gm/dL 07/18/18 16:40 Albumin/Globulin Ratio 1.1 (1.0-1.8) 07/18/18 16:40 TSH 3.00 uIU/ml (0.34-5.60) 07/17/18 13:58 Urine Source CLEAN C 07/18/18 15:14 Urine Color YELLOW 07/18/18 15:14 Urine Clarity HAZY (CLEAR) 07/18/18 15:14 Urine pH 6.0 (4.6 - 8.0) 07/18/18 15:14 Ur Specific [place] 1.020 (1.005-1.030) 07/18/18 15:14 Urine Protein NEGATIVE mg/dL (NEGATIVE) 07/18/18 15:14 Urine Glucose (UA) NEGATIVE mg/dL (NEGATIVE) 07/18/18 15:14 Urine Ketones NEGATIVE mg/dL (NEGATIVE) 07/18/18 15:14 Urine Blood TRACE (NEGATIVE) 07/18/18 15:14 Urine Nitrate POSITIVE (NEGATIVE) H 07/18/18 15:14 Urine Bilirubin NEGATIVE (NEGATIVE) 07/18/18 15:14 Urine Urobilinogen 0.2 E.U./dL (0.2 - 1.0) 07/18/18 15:14 Ur Leukocyte Esterase MODERATE (NEGATIVE) H 07/18/18 15:14 Urine RBC 2-5 /hpf (0-5) 07/18/18 15:14 Urine WBC 10-25 /hpf (0-5) H 07/18/18 15:14 Ur Epithelial Cells MODERATE /lpf (FEW) 07/18/18 15:14 Urine Bacteria MANY /hpf (NONE SEEN) H 07/18/18 15:14 Vancomycin Trough 9.1 ug/mL (5-10) 07/20/18 19:40 - Physical Exam Vitals and I&O: Vital Signs Temp 97.6 F 07/20/18 22:11 Pulse 59 07/20/18 22:11 Resp 17 07/20/18 22:11 BP 139/48 07/20/18 22:11 Pulse Ox 98 07/20/18 22:11 Intake & Output 07/20/18 07/20/18 07/21/18 06:59 18:59 06:59 Intake Total 950 700 Balance 950 700 Weight (lbs) 65.317 kg 65.317 kg Intake: Intake, IV Amount 350 100 Piperacillin Sodium/ 100 100 Tazobact 3.375 gm In Sodium Chloride 0.9% 50 ml @ 100 mls/hr IV Q6HR [facility] Rx#:[id number] Vancomycin HCl 0.75 gm In 250 Sodium Chloride 0.9% 250 ml @ 165 mls/hr IV Q24HR @2000 [facility] Rx#:[id number] Oral 600 600 Other: # Voids 3 3 # Bowel Movements 1 1 Stool Characteristics Soft Brown Weight Source Estimated Bedscale Active Medications: Current Medications Acetaminophen (Tylenol Extra Strength) 500 mg PO Q4H PRN PRN Reason: Pain (Moderate) Stop: 09/15/18 17:05 Ascorbic Acid (Vitamin C) 500 mg PO DAILY [facility] Stop: 09/16/18 08:59 Last Admin: 07/20/18 09:02 Dose: 500 mg Aspirin (Ecotrin) 81 mg PO DAILY [facility] Stop: 09/16/18 08:59 Last Admin: 07/20/18 09:02 Dose: 81 mg Atorvastatin Calcium (Lipitor) 20 mg PO HS [facility] Stop: 09/16/18 20:59 Last Admin: 07/20/18 20:31 Dose: 20 mg Bisacodyl (Dulcolax 10 Mg Supp) 10 mg RC DAILY PRN PRN Reason: Constipation Stop: 09/15/18 17:05 Calcium Carbonate (Calcium Carb) 600 mg PO DAILY [facility] Stop: 09/16/18 08:59 Last Admin: 07/20/18 09:02 Dose: 600 mg Cholecalciferol (Vitamin D3) 1,000 iu PO DAILY [facility] Stop: 09/16/18 10:59 Last Admin: 07/20/18 09:02 Dose: 1,000 iu Dextrose (D50w) 25 ml IVP STAT PRN PRN PRN Reason: low blood sugar Stop: 09/15/18 17:05 Docusate Sodium (Colace) 100 mg PO DAILY [facility] Stop: 09/16/18 08:59 Last Admin: 07/20/18 09:03 Dose: 100 mg Enalapril Maleate (Vasotec) 5 mg PO DAILY [facility] Stop: 09/16/18 08:59 Last Admin: 07/20/18 09:02 Dose: 5 mg Famotidine (Pepcid) 20 mg PO DAILY [facility] Stop: 09/16/18 08:59 Last Admin: 07/20/18 09:02 Dose: 20 mg Folic Acid (Folate) 1 mg PO DAILY [facility] Stop: 09/16/18 08:59 Last Admin: 07/20/18 09:02 Dose: 1 mg Heparin Sodium (Porcine) (Heparin) 5,000 units SUBQ Q12HR [facility] Stop: 09/17/18 20:59 Last Admin: 07/20/18 20:31 Dose: 5,000 units Piperacillin Sod/Tazobactam (Sod 3.375 gm/ Sodium Chloride) 50 mls @ 100 mls/ hr IV Q6HR [facility] Stop: 09/16/18 00:00 Last Admin: 07/20/18 17:29 Dose: 12.5 mls/hr Vancomycin HCl 0.75 gm/ Sodium (Chloride) 250 mls @ 165 mls/hr IV Q24HR@1999 [facility] Stop: 09/16/18 19:59 Last Admin: 07/20/18 20:25 Dose: 165 mls/hr Insulin Aspart (Novolog Insulin Sliding Scale) 0 units SUBQ ACHS [facility]; Protocol Stop: 09/16/18 07:29 Last Admin: 07/20/18 20:33 Dose: 4 units Insulin Detemir (Levemir Insulin) 10 units SUBQ HS [facility] Stop: 09/16/18 20:59 Last Admin: 07/20/18 20:32 Dose: 10 units Lactobacillus Rhamnosus (Culturelle 15b) 1 each PO DAILY [facility] Stop: 09/17/18 13:59 Last Admin: 07/20/18 09:02 Dose: 1 each Magnesium Hydroxide (Milk Of Magnesia) 30 ml PO DAILY PRN PRN Reason: Constipation Stop: 09/15/18 17:05 Miscellaneous (Vancomycin Iv Per Pharmacy) 1 ea PRN PRN PRN Reason: PROTOCOL Stop: 09/16/18 08:55 Miscellaneous (Vte Chemical Prophylaxis Screen/ Admission) 1 ea PRN PRN PRN Reason: PROTOCOL Stop: 09/17/18 12:13 Miscellaneous (Probiotic Screen) 1 ea PRN PRN PRN Reason: PROTOCOL Stop: 09/17/18 12:35 Morphine Sulfate (Morphine) 1 mg IVP Q4HR PRN PRN Reason: Pain (Severe) Stop: 09/16/18 10:39 Ondansetron HCl (Zofran Odt) 4 mg PO Q6H PRN PRN Reason: Nausea / Vomiting Stop: 09/16/18 10:46 Polyethylene Glycol (Miralax) 17 gm PO BID PRN PRN Reason: Constipation Sodium Phosphate (Fleet Enema) 135 ml RC Q2D PRN PRN Reason: Constipation Stop: 09/15/18 17:05 General: no acute distress, well developed, well nourished HEENT: atraumatic, normocephalic, PERRLA, EOMI Neck: supple, no thyromegaly Cardiovascular: S1S2, regular Lungs: clear to auscultation bilaterally, clear to percussion Abdomen: soft, no tender, no distended Extremities: no cyanosis, no clubbing, no edema Neurological: awake, alert, oriented Skin: intact Infectious Disease Assmt/Plan - Assessment Assessment: 1, right hip surgical site infection with cellulitis. Wound culture grew E coli. Gram stain GNR and GPC in chains. 2. 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 3. DM2 4. HTN. 5. Hyperlipidemia. - Plan Plan: Continue vanco IV and Ivanz 1 gm IV daily as wound culture also grew ESBL E coli ( I was not informed by RN). will see the final culture report and decide final antibiotics for 6 weeks total. The facility [facility] was informed of the above result ESBL E Coli from wound, and the RN was told to change rocephin to Invanz IV. Dr Bella was also informed. Nutritional Asmnt/Malnutr-PDOC - Dietary Evaluation Malnutrition Findings (Please click <Entered> for more info): Nutritional Asmnt/Malnutrition Start: 07/19/18 18: 10 Text: Status: Complete Freq: Protocol: Document 07/19/18 18:11 LCHENG (Rec: 07/19/18 18:19 LCHENG [id number]) Nutritional Asmnt/Malnutrition Patient General Information Nutritional Screening High Risk Diagnosis right hip infection Pertinent Medical Hx/Surgical Hx HTN, CAD, CVA, PUD, hyperlipidemia, dementia, osteoporosis Subjective Information Pt seen sitting up in bed at time of visit, just finished lunch. Pt is [place]ic speaking, showing she does not like the food, lunch consumed 75%. Per EMR, PO intake 75% since admission. blood sugar 210 at admission noted. Not able to provide diabetic education d/t language barrier. Current Diet Order/ Nutrition Support MARIO, CCHO, no milk Pertinent Medications vit C, lipitor, vit D3, D50w, colace, folate, novolog, levemir, culturelle, piperacillin, miralax, vancomycin Pertinent Labs 07/18 Na 135, glucose 23, POC 1329-232 07/19 POC 117-149 Nutritional Hx/Data Height 1.57 m Height (Calculated Centimeters) 157.5 Current Weight (lbs) 65.317 kg Weight (Calculated Kilograms) 65.3 Weight (Calculated Grams) 47418.3 [place] Body Weight 110 Body Mass Index (BMI) 26.3 Weight Status Overweight GI Symptoms GI Symptoms None Last BM 07/19 Difficult in: None Skin Integrity/Comment: Patient noted surgical wound incision to righ hip, dry, reddened. Estimated Nutritional Goals BEE in Kcals: Using Current wt Calories/Kcals/Kg 25-30 Kcals Calculated 3444-0744 Protein: Using Current wt Protein g/k-1.2 Protein Calculated 65-78 Fluid: ml 1625-1950ml (1m/kcal) Nutritional Problem 2. Problem Problem increased nutrition needs Etiology impaired skin integrity Signs/Symptoms: infected surgical wound 1. Problem Problem altered nutrition related labs Etiology endocrine dysfunction and hyperglycemia Signs/Symptoms: glucose 23, POC 117-232 Malnutrition Alert Is there a minimum of two criteria No selected? Query Text:Check all the applicable criteria. A minimum of two criteria are recommended for diagnosis of either severe or non-severe malnutrition. Malnutrition Related to Morbid Obesity Malnutrition related to morbid obesity No Intervention/Recommendation Comments 1. Continue with current diet as ordered. 2. Monitor PO intake, wt, labs and skin integrity 3. F/U as moderate risk in 3-5 days, 07/22-07/24 Expected Outcomes/Goals Expected Outcomes/Goals 1. PO intake to meet at least 75% of nutritional needs. 2. Wt stability, skin to remain intact, labs to approach WNL.
--- NOTE | 2018-07-21 10:03 | Diagnostic Imaging Report ---
Portable chest x-ray History: Shortness of breath, vascular catheter placement Allowing for portable technique the heart size is normal. No focal pulmonary parenchymal processes. No hilar or mediastinal abnormalities. A right-sided vascular catheter tip is seen in the region of the superior vena cava. Impression: 1. Vascular catheter placement as noted above 2. No acute focal pulmonary processes
--- NOTE | 2018-08-02 18:39 | Discharge Summary ---
DATE OF DISCHARGE: 07/20/2018 This patient came from [facility]. The patient had a surgical site infection on the right hip status post prosthesis and the patient was given IV antibiotics and the patient was seen by Dr. Herrera and ___ the patient needs 6 weeks of total antibiotic therapy. [facility] with [facility] in stable condition where I will be following the patient. FINAL DIAGNOSES: Infected surgical wound and cellulitis, history of recent surgery and history of hypertension, diabetes, TIA and history of hyperlipidemia. CONDITION AT TIME OF DISCHARGE: Stable. JOB# [id number]
== END 2018-07-20 22:20 | DRG 863 ==
LOC: ER 13:19 → MSI 16:51
PROVIDERS: ADMIT Internal Medicine; ATTEND Internal Medicine
DX: T81.4XXA Infection following a procedure, initial encounter (principal); L03.115 Cellulitis of right lower limb; I10 Essential (primary) hypertension; E11.9 Type 2 diabetes mellitus without complications; E78.5 Hyperlipidemia, unspecified; F03.90 Unspecified dementia, unspecified severity, without behavioral disturbance, psychotic disturbance, mood disturbance, and anxiety; I25.10 Atherosclerotic heart disease of native coronary artery without angina pectoris; K21.9 Gastro-esophageal reflux disease without esophagitis; M81.0 Age-related osteoporosis without current pathological fracture; B96.20 Unspecified Escherichia coli [E. coli] as the cause of diseases classified elsewhere; Y83.8 Other surgical procedures as the cause of abnormal reaction of the patient, or of later complication, without mention of misadventure at the time of the procedure; Y92.89 Other specified places as the place of occurrence of the external cause; Z86.73 Personal history of transient ischemic attack (TIA), and cerebral infarction without residual deficits; Z88.8 Allergy status to other drugs, medicaments and biological substances; Z79.4 Long term (current) use of insulin
CPT/HCPCS: 36415-UA; 71045-TC; 73700-TC-RT; 80053-TC; 80202-TC; 81001-TC; 82565-TC; 82948-90; 83036-90; 83735-TC; 84443-TC; 84484-TC; 84520-TC; 85025-TC; 85610-TC; 87070-90; 87075-90; 87086-90; 93005; J0696; J1644; J1815; J2270; J2543; J3370; Q0162; X3904; Z7610

== ENCOUNTER 2018-07-21 22:36 | Inpatient (IN) | payer MEDICARE, MEDICAID ==
--- NOTE | 2018-07-21 22:56 | ED Physician Chart ---
ED Chief Complaint/HPI - Patient Information Date Seen:: 07/21/18 Time Seen:: 22:45 Chief Complaint:: Redness History of Present Illness:: onset x 3 days of facial redness, swelling, and erythema; no report of trauma, H /As, neck pain, C/P, cough, SOB, Abd. Pain, A/N/V/D/C, fever, chills, or urinary s/s; pt's last tetanus shot: < 5 years; UTD Allergies:: Allergies Allergy/AdvReac Type Severity Reaction Status Date / Time naproxen [From Naprosyn] Allergy Verified 07/17/18 13:33 Complex B Allergy Uncoded 07/17/18 13:35 Historian:: Patient Review:: Nurse's Note Reviewed ED Review of Systems - Review of Systems General/Constitutional: No fever, No chills, No weight loss, No weakness, No diaphoresis, No edema, No loss of appetite Skin: Skin lesions, Rash, No bruising Head: No headache, No light-headedness Eyes: No loss of vision, No pain, No diplopia ENT: No earache, No nasal drainage, No sore throat, No tinnitus Neck: No neck pain, No swelling, No thyromegaly, No stiffness, No mass noted Cardio Vascular: No chest pain, No palpitations, No PND, No orthopnea, No edema Pulmonary: No SOB, No cough, No sputum, No wheezing GI: No nausea, No vomiting, No diarrhea, No pain, No melena, No hematochezia, No constipation, No hematemesis G/U: No dysuria, No frequency, No hematuria, No nacturia Musculoskeletal: No bone or joint pain, No back pain, No muscle pain Endocrine: No polyuria, No polydipsia Psychiatric: No prior psych history, No depression, No anxiety, No suicidal ideation, No homicidal ideation, No auditory hallucination, No visual hallucination Hematopoietic: No bruising, No lymphadenopathy Allergic/Immuno: No urticaria, No angioedema Neurological: No syncope, No focal symptoms, No weakness, No paresthesia, No headache, No seizure, No dizziness, Confusion, No vertigo ED Past Medical History - Past Medical History Obtainable: Yes Past Medical History: HTN, DM, Dyslipidemia, Arthritis, Dementia Family History: Diabetes Melitus, HTN Social History: Non Smoker, No Alcohol, No Drug Use, , Care Facility Surgical History: None Psychiatricy History: Dementia Medication: Reviewed Family Medical History - Family Member Father History Unknown: Yes Living Status: ED Physical Exam - Physical Examination General/Constitutional: Awake, Well-developed, well-nourished, Alert, No distress, GCS 15, Non-toxic appearing, Ambulatory Head: Atraumatic Eyes: Lids, conjuctiva normal, PERRL, EOMI Skin: Nl inspection, No rash, No skin lesions, No ecchymosis, Well hydrated, No lymphadenopathy Other Skin comments:: + Chin/Facial Cellulitis; good NV functions ENMT: External ears, nose nl, Nasal exam nl, Lips, teeth, gums nl, Oropharynx nl , Tonsils nl Neck: Nontender, Full ROM w/o pain, No JVD, No nuchal rigidity, No bruit, No mass, No stridor Respiratory: Nl effort/Exclusion, Clear to Auscultation, No Wheeze/Rhonchi/Rales Cardio Vascular: RRR, No murmur, gallop, rubs, NL S1 S2, Carotid/Femoral/Distal pulses equal bilaterally GI: No tenderness/rebounding/guarding, No organomegaly, No hernia, Normal BS's, Nondistended, No mass/bruits, No McBurney tenderness Other GI comments:: no pulsatile masses : No CVA tenderness Extremities: No tenderness or effusion, Full ROM, normal strength in all extremities, No edema, Normal digits & nails Neuro/Psych: Alert/oriented, DTR's symmetric, Normal sensory exam, Normal motor strength, Judgement/insight normal, Mood normal, Normal gait, No focal deficits Misc: Normal back, No paraspinal tenderness ED Labs/Radiology/EKG Results - Lab Results Comments:: Reviewed - Radiology Results Comments:: NAD - EKG Interpretations Rate & Rhythm: NSR Comments:: non-specific st-t changes ED Septic Shock - . Is Septic Shock (SBP<90, OR Lactate>4 mmol\L) present?: No ED Reassessment (Disposition) - Reassessment Reassessment Condition:: Improved - Diagnosis Diagnosis:: Facial Cellulitis; Sepsis; Hyperglycemia; Abnormal LFTs - Aftercare/Follow up Instructions Aftercare/Follow-Up Instructions:: Counseled pt regarding lab results/diagnosis & need follow up, Counseled pt & family regarding lab results/diagnosis & need follow up - Patient Disposition Discharge/Transfer:: Acute Care w/in this hosp Accepting Physician:: Dr. Bella Time Called:: 0015 Time Responded:: 00:15 Admitted to:: Med/Surg Spoke to:: Dr. Bella Admitting Medical Physician:: Dr. Bella Condition at Disposition:: Stable, Improved
[2018-07-22 00:26] LABS: % BASOPHILS 0.7 % (0.0-2.0); % EOSINOPHILS 4.3 % (0.0-5.0); % LYMPHOCYTES 18.9 % (20.0-50.0); % MONOCYTES 6.6 % (2.0-10.0); % NEUTROPHILS 69.5 % (40.0-80.0); BASOPHILE ABSOLUTE 0.1 Th/cumm (0-0.2); EOSINOPHILE ABSOLUTE 0.4 Th/cmm (0.1-0.4); HEMATOCRIT 38.5 % (41.0-60); LYMPHOCYTE ABSOLUTE 1.8 Th/cmm (1.5-3.0); MEAN CELL VOLUME 92.2 fl (81-100); MEAN CORPUSCULAR HEMOGLOBIN 31.1 pg (27.0-31.0); MEAN CORPUSCULAR HGB CONC 33.7 pg (28.0-36.0); MEAN PLATELET VOLUME 9.2 fl; MONOCYTE ABSOLUTE 0.6 Th/cmm (0.3-1.0); NEUTROPHILE ABSOLUTE 6.8 Th/cmm (1.8-8.0); PLATELET COUNT 205 Th/cmm (150-400); RED BLOOD COUNT 4.18 Mil/cmm (3.80-5.20); RED CELL DISTRIBUTION WIDTH 13.6 % (11.5-20.0); WHITE BLOOD COUNT 9.7 Th/cmm (4.8-10.8)
[2018-07-22 00:57] LABS: ALB/GLOB RATIO 0.9 (1.0-1.8); ALBUMIN 3.7 gm/dL (3.7-5.3); ALKALINE PHOSPHATASE 159 U/L (34-104); ANION GAP 12.4 (7.0-16.0); BILIRUBIN,TOTAL 0.5 mg/dL (0.3-1.0); BUN - UREA NITROGEN 46 mg/dL (7-25); CALCIUM SERUM 10.2 mg/dL (8.6-10.3); CARBON DIOXIDE 23.6 mEq/L (21.0-31.0); CHLORIDE 104 mEq/L (98-107); CREATININE - SERUM 0.9 mg/dL (0.6-1.2); CREATININE KINASE 29 U/L (30-223); GLUCOSE 143 mg/dL (70-105); SGOT 30 U/L (13-39); SGPT/ALT 18 U/L (7-52); SODIUM SERUM 136 mEq/L (136-145); TOTAL PROTEIN,SERUM 7.9 gm/dL (6.0-8.3)
[2018-07-22 00:58] LABS: INR 0.96 (0.5-1.4)
[2018-07-22 00:59] LABS: TROP I 0.02 ng/mL (0.01-0.05)
[2018-07-22] MEDS ORDERED: Ertapenem 1 GM in Sodium Chloride 0.9% 100 ML IV SCH (03:30)
[2018-07-22] MEDS ORDERED: Meropenem 500 MG in Sodium Chloride 0.9% 100 ML IV SCH (04:00)
[2018-07-22 06:42] LABS: URINE SOURCE MIDSTREAM
[2018-07-22 06:45] LABS: URINE BILIRUBIN NEGATIVE (NEGATIVE); URINE BLOOD NEGATIVE (NEGATIVE); URINE GLUCOSE (UA) NEGATIVE (NEGATIVE); URINE KETONE NEGATIVE (NEGATIVE); URINE LEUKOCYTE ESTERASE NEGATIVE (NEGATIVE); URINE NITRATE NEGATIVE (NEGATIVE); URINE PROTEIN NEGATIVE (NEGATIVE); URINE UROBILINOGEN 0.2 E.U./dL (0.2 - 1.0)
[2018-07-22] MEDS: Meropenem 500 MG in Sodium Chloride 0.9% 100 ML IV SCH ×2 (06:48→18:00)
[2018-07-22 06:52] LABS: URINE CLARITY CLEAR (CLEAR); URINE COLOR YELLOW
[2018-07-22 06:53] LABS: URINE MICROSCOPIC INDICATED? YES
[2018-07-22 06:56] LABS: URINE BACTERIA FEW /hpf (NONE SEEN); URINE EPITHELIAL CELLS OCCASIONAL /lpf (FEW); URINE RBC 0-2 /hpf (0-5)
[2018-07-22 07:40] VITALS: BP 144/82
[2018-07-22] MEDS ORDERED: Acetaminophen 500 MG TAB PO PRN (08:05)
[2018-07-22] MEDS ORDERED: Magnesium Hydroxide (MOM) 30 mL UDC PO PRN (08:05)
[2018-07-22] MEDS ORDERED: Fleet Enema 135 mL RC PRN (08:05)
[2018-07-22] MEDS ORDERED: Hydrocodone/APAP 10 mg/325 mg Tab PO PRN (08:05)
[2018-07-22] MEDS ORDERED: Dextrose 50% 50 mL Abboject IVP PRN (08:05)
[2018-07-22] MEDS ORDERED: GLUCAGON HCl 1 MG KIT IM PRN (08:05)
[2018-07-22 09:25] LABS: ANION GAP 10.7 (7.0-16.0); BUN - UREA NITROGEN 8 mg/dL (7-25); CALCIUM SERUM 9.1 mg/dL (8.6-10.3); CARBON DIOXIDE 24.8 mEq/L (21.0-31.0); CHLORIDE 104 mEq/L (98-107); CREATININE - SERUM 0.5 mg/dL (0.6-1.2); GLUCOSE 192 mg/dL (70-105); POTASSIUM SERUM 3.5 mEq/L (3.5-5.1); SODIUM SERUM 136 mEq/L (136-145)
[2018-07-22] MEDS: Lactobacillus Rhamnosus GG 15 Billion CFU CAP.SPRINK PO SCH (10:02)
[2018-07-22] MEDS: POLYETHYLENE GLYCOL 3350 17 GM PACK PO SCH ×3 (10:02→16:55)
[2018-07-22] MEDS: Vitamin D3 2,000 IU SGL PO SCH (11:46)
[2018-07-22] MEDS ORDERED: VANCOMYCIN HCL IV SCH (20:00)
--- NOTE | 2018-07-22 20:30 | History & Physical ---
ADMIT DATE: 07/22/2018 HISTORY OF PRESENT ILLNESS: The patient was admitted because of increasing facial redness, swelling, erythema, and admitted for erythema around her hip, status post surgery and was admitted for acute cellulitis, possible sepsis, and history of recent surgery. The patient complained of no fever, no chills, no rigors, no nausea, no vomiting, no diarrhea. PAST MEDICAL HISTORY: History of hypertension, diabetes, hyperlipidemia, arthritis, dementia, and status post surgery. PHYSICAL EXAMINATION: HEAD: Normal. ENT: Normal. HEENT: Normal. NECK: Supple, nontender. LUNGS: Clear. CARDIOVASCULAR SYSTEM: S1, S2 heard. ABDOMEN: Soft. Bowel sounds are heard. EXTREMITIES: Tenderness, swelling, and redness around the status post hip surgery area on the left. LABORATORY DATA: The patient's EKG was normal sinus rhythm, nonspecific ST-T changes. DIAGNOSES: Severe cellulitis in surgical site, status post surgery, history of sepsis, history of hyperglycemia was made. PLAN: The patient is being admitted. I will go ahead and give her antibiotics and Dr. Herrera will see the patient. I will follow the patient. JOB# [id number]
[2018-07-22] MEDS: Atorvastatin Calcium 10 MG TAB PO SCH (21:02)
[2018-07-22] MEDS: INSULIN ASPART SLIDING SCALE 100 UNITS/ML UNIT SUBQ SCH (21:02)
[2018-07-22] MEDS: Insulin Detemir 100 units/mL 10mL Vial SUBQ SCH (21:03)
[2018-07-23] MEDS: Meropenem 500 MG in Sodium Chloride 0.9% 100 ML IV SCH (03:52)
[2018-07-23 05:45] LABS: % BASOPHILS 0.1 % (0.0-2.0); % EOSINOPHILS 7.2 % (0.0-5.0); % LYMPHOCYTES 27.1 % (20.0-50.0); % MONOCYTES 7.2 % (2.0-10.0); % NEUTROPHILS 58.4 % (40.0-80.0); EOSINOPHILE ABSOLUTE 0.5 Th/cmm (0.1-0.4); HEMATOCRIT 32.1 % (41.0-60); HEMOGLOBIN 10.9 gm/dL (12-16); MEAN CELL VOLUME 90.2 fl (81-100); MEAN CORPUSCULAR HEMOGLOBIN 30.8 pg (27.0-31.0); MEAN CORPUSCULAR HGB CONC 34.1 pg (28.0-36.0); MEAN PLATELET VOLUME 8.1 fl; MONOCYTE ABSOLUTE 0.5 Th/cmm (0.3-1.0); NEUTROPHILE ABSOLUTE 4.4 Th/cmm (1.8-8.0); PLATELET COUNT 200 Th/cmm (150-400); RED BLOOD COUNT 3.55 Mil/cmm (3.80-5.20); RED CELL DISTRIBUTION WIDTH 13.3 % (11.5-20.0); WHITE BLOOD COUNT 7.4 Th/cmm (4.8-10.8)
[2018-07-23 05:51] LABS: ANION GAP 9.3 (7.0-16.0); BUN - UREA NITROGEN 8 mg/dL (7-25); CALCIUM SERUM 8.9 mg/dL (8.6-10.3); CHLORIDE 104 mEq/L (98-107); CREATININE - SERUM 0.5 mg/dL (0.6-1.2); POTASSIUM SERUM 3.3 mEq/L (3.5-5.1); SODIUM SERUM 137 mEq/L (136-145)
[2018-07-23 05:54] LABS: GLUCOSE 90 mg/dL (70-105)
[2018-07-23] MEDS: INSULIN ASPART SLIDING SCALE 100 UNITS/ML UNIT SUBQ SCH ×4 (06:36→20:14)
--- NOTE | 2018-07-23 08:30 | Consultation ---
Consult Note - Consult Note Service Date: 07/23/18 Referring Physician: Cherelle Bella Consult Note: PHYSICIAN Consultation Note: Date of Admission: 07/22/18 Purpose of Consultation: Chief Complaint: Patient MAY SILVERMAN was admitted to [facility] with INFECTED SURGICAL SITE. History of Present Illness: 83-year-old female had ORIF performed at [facility] one month ago and discharged to nursing facility, as there was pus coming out of upper part of the surgical incision. So she was sent to the ED on 07/17/2018 for further evaluation. She was discharged to SNF, while waiting for the culture. Initially , she treated by Vanco IV and Zosyn. I was reported of Susceptible E coli growing from wound. She was discharged on Rocephin. Later on, the culture also grew ESBL producing E coli. [facility] facility was informed and I gave order to change Rocephin to invanz. detention could not provide Invanz, she was sent back here for antibiotic management. Past Medical History: DM2, HTN, Hyperlipidemia. Allergies Allergy/AdvReac Type Severity Reaction Status Date / Time naproxen [From Naprosyn] Allergy Verified 07/17/18 13:33 sulfasalazine Allergy Verified 07/22/18 08:35 NSAIDS (Non-Steroidal AdvReac Verified 07/22/18 08:34 Anti-Inflamma salicylates AdvReac Verified 07/22/18 08:28 Complex B Allergy Uncoded 07/17/18 13:35 Vital Signs Temp 97.4 F 07/23/18 03:00 Pulse 66 07/23/18 03:00 Resp 17 07/23/18 04:12 BP 132/54 07/23/18 03:00 Pulse Ox 99 07/23/18 03:00 Intake & Output 07/22/18 07/23/18 07/23/18 18:59 06:59 18:59 Intake Total 100 300 Output Total 2 Balance 100 298 Weight (lbs) 64.41 kg 65.317 kg Intake: Intake, IV Amount 100 Meropenem 500 mg In 100 Sodium Chloride 0.9% 100 ml @ 100 mls/hr IV Q12H [facility] Rx#:[id number] Oral 100 200 Output: Urine/Stool Mix 2 Other: # Voids 1 2 # Bowel Movements 0 1 Stool Characteristics Soft Brown Weight Source Bedscale Bedscale Laboratory Results - last 24 hr 07/22/18 07/22/18 07/22/18 08:55 08:55 20:48 WBC RBC Hgb Hct MCV MCH MCHC Differential RDW Plt Count MPV Neutrophils % Lymphocytes % Monocytes % Eosinophils % Basophils % Sodium 136 Potassium 3.5 Chloride 104 Carbon Dioxide 24.8 Anion Gap 10.7 BUN 8 Creatinine 0.5 L Est GFR ( Amer) TNP Est GFR (Non-Af Amer) TNP BUN/Creatinine Ratio 16.0 Glucose 192 H POC Glucose 175 H Calcium 9.1 Random Vancomycin 9.6 07/23/18 07/23/18 07/23/18 05:00 05:00 05:24 WBC 7.4 RBC 3.55 L Hgb 10.9 L Hct 32.1 L MCV 90.2 MCH 30.8 MCHC Differential 34.1 RDW 13.3 Plt Count 200 MPV 8.1 Neutrophils % 58.4 Lymphocytes % 27.1 Monocytes % 7.2 Eosinophils % 7.2 H Basophils % 0.1 Sodium 137 Potassium 3.3 L Chloride 104 Carbon Dioxide 27.0 Anion Gap 9.3 BUN 8 Creatinine 0.5 L Est GFR ( Amer) TNP Est GFR (Non-Af Amer) TNP BUN/Creatinine Ratio 16.0 Glucose 90 D POC Glucose 90 Calcium 8.9 Random Vancomycin Home Medication Medication Instructions Recorded Type Acetaminophen [Pain Relief 8Hr] 650 mg PO Q4H PRN 07/17/18 History Acetaminophen [Pain Reliever] 1,000 mg PO Q4H PRN 07/17/18 History Aspirin [Adult Aspirin] 81 mg PO DAILY 07/17/18 History Atorvastatin Calcium [Lipitor] 20 mg PO HS 07/17/18 History Bisacodyl [Dulcolax 10 Mg Supp] 10 mg RC DAILY PRN 07/17/18 History Calcium Carbonate 2 tab PO DAILY 07/17/18 History Cholecalciferol (Vitamin D3) 2 gm PO DAILY 07/17/18 History [Cholecalciferol] Cyanocobalamin [Vitamin B12] 1,000 mcg PO DAILY 07/17/18 History Dextrose 50 % in Water [Dextrose 25 ml IV STAT PRN PRN 07/17/18 History 50%-Water Abboject] Enalapril Maleate [Vasotec] 5 mg PO DAILY 07/17/18 History Famotidine [Pepcid] 20 mg PO QDAC 07/17/18 History Fleet Enema 135 ml RC Q2D PRN 07/17/18 History Folic Acid [Folate*] 1 mg PO DAILY 07/17/18 History Glucagon,Human Recombinant 1 mg IM STAT PRN PRN 07/17/18 History [Glucagon Emergency Kit] Hydrocodone/APAP 10 mg/325 mg 1 tab PO Q8H PRN 07/17/18 History [[place] 10 mg/325 mg] Insulin Glargine,Hum.rec.anlog 10 unit SQ HS 07/17/18 History [Basaglar Kwikpen U-100] Insulin Lispro [Admelog Solostar] See Protocol SQ ACHS PRN 07/17/18 History Magnesium Hydroxide [Milk of 30 ml PO HS PRN 07/17/18 History Magnesia] Ondansetron [Zofran Odt] 4 mg PO Q6H PRN odt 07/20/18 Rx Vancomycin HCl [Vancomycin] 0.75 gm IV Q24HR@2000 vial 07/20/18 Rx Docusate Sodium [Colace] 100 mg PO DAILY 07/21/18 History Ertapenem [Invanz] 1 gm IV Q24H 07/21/18 History Polyethylene Glycol 3350 [Miralax] 17 gm PO BID 07/21/18 History Saccharomyces Boulardii [Florastor] 250 mg PO BID 07/21/18 History cefTRIAXone [Rocephin] 1 gm IV Q24HR 07/21/18 History Current Medications Generic Name Dose Route Start Last Admin Trade Name Freq PRN Reason Stop Dose Admin Acetaminophen 1,000 mg 07/22/18 08:05 Tylenol Extra Strength PO 09/20/18 08:04 Q4H PRN Pain (Moderate) Acetaminophen 650 mg 07/22/18 08:05 Tylenol PO Q4H PRN Mild Pain or Fever >101 Acetaminophen/Hydrocodone Bitart 1 tab 07/22/18 08:05 07/22/18 23:07 [place] 10 Mg/325 Mg PO 09/20/18 08:04 1 tab Q8H PRN Administration Pain (Severe) Atorvastatin Calcium 20 mg 07/22/18 21:00 07/22/18 21:02 Lipitor PO 09/20/18 20:59 20 mg HS [facility] Administration Bisacodyl 10 mg 07/22/18 08:05 Dulcolax 10 Mg Supp RC 09/20/18 08:04 DAILY PRN Constipation Calcium Carbonate 1,200 mg 07/22/18 09:00 07/22/18 10:01 Calcium Carb PO 09/20/18 08:59 1,200 mg DAILY [facility] Administration Cyanocobalamin 1,000 mcg 07/22/18 09:00 07/22/18 10:01 Vitamin B12 PO 09/20/18 08:59 1,000 mcg DAILY [facility] Administration Dextrose 25 ml 07/22/18 08:05 D50w IVP 09/20/18 08:04 STAT PRN PRN blood sugar below 60 Docusate Sodium 100 mg 07/22/18 09:00 07/22/18 10:01 Colace PO 09/20/18 08:59 100 mg DAILY [facility] Administration Enalapril Maleate 5 mg 07/22/18 09:00 07/22/18 10:01 Vasotec PO 09/20/18 08:59 5 mg DAILY [facility] Administration Famotidine 20 mg 07/23/18 07:30 07/23/18 06:36 Pepcid PO 09/21/18 07:29 20 mg QDAC [facility] Administration Folic Acid 1 mg 07/22/18 09:00 07/22/18 10:01 Folate PO 09/20/18 08:59 1 mg DAILY [facility] Administration Glucagon 1 mg 07/22/18 08:05 Glucagen IM STAT PRN PRN blood sugar below 60 Meropenem 500 mg/ Sodium 100 mls @ 100 mls/hr 07/22/18 04:15 07/23/18 03:52 Chloride IV 09/20/18 03:59 100 mls/hr Q12H [facility] Administration Vancomycin HCl 0.75 gm/ Sodium 250 mls @ 165 mls/hr 07/22/18 11:00 07/22/18 11:45 Chloride IV 09/20/18 10:59 165 mls/hr Q24HR@0900 [facility] Administration Insulin Aspart 0 units 07/22/18 21:00 07/23/18 06:36 Novolog Insulin Sliding Scale SUBQ 09/20/18 20:59 Not Given ACHS [facility] Protocol Insulin Detemir 10 units 07/22/18 21:00 07/22/18 21:03 Levemir Insulin SUBQ 09/20/18 20:59 10 units HS [facility] Administration Lactobacillus Rhamnosus 1 each 07/22/18 09:00 07/22/18 10:02 Culturelle 15b PO 09/20/18 08:59 1 each DAILY [facility] Administration Magnesium Hydroxide 30 ml 07/22/18 08:05 Milk Of Magnesia PO 09/20/18 08:04 HS PRN Constipation Miscellaneous 1 ea 07/22/18 09:00 Vancomycin Iv Per Pharmacy 09/20/18 08:59 DAILY [facility] Ondansetron HCl 4 mg 07/22/18 08:05 Zofran Odt PO 09/20/18 08:04 Q6H PRN Nausea / Vomiting Polyethylene Glycol 17 gm 07/22/18 09:00 07/22/18 16:55 Miralax PO 09/20/18 08:59 Not Given BID [facility] Sodium Phosphate 135 ml 07/22/18 08:05 Fleet Enema RC 09/20/18 08:04 Q2D PRN Constipation Vitamin D 2,000 iu 07/22/18 11:00 07/22/18 11:46 Vitamin D3 PO 09/20/18 10:59 2,000 iu DAILY [facility] Administration Review of Systems: A 12 point ROS was reviewed with the pertinent positive and negatives noted in the HPI. General/Constitutional: No fever, No chills, No weight loss, No weakness, No diaphoresis, No edema, No loss of appetite Skin: No skin lesions, No rash, No bruising. New healing surgical incision on right thigh with draining pus at the upper end. Head: No headache, No light-headedness Eyes: No loss of vision, No pain, No diplopia ENT: No earache, No nasal drainage, No sore throat, No tinnitus Neck: No neck pain, No swelling, No thyromegaly, No stiffness, No mass noted Cardio Vascular: No chest pain, No palpitations, No PND, No orthopnea, No edema Pulmonary: No SOB, No cough, No sputum, No wheezing GI: No nausea, No vomiting, No diarrhea, No pain, No melena, No hematochezia, No constipation, No hematemesis G/U: No dysuria, No frequency, No hematuria Musculoskeletal: Bone or joint pain (right hip pain), No back pain, No muscle pain Endocrine: No polyuria, No polydipsia Psychiatric: No prior psych history, No depression, No anxiety, No suicidal ideation Hematopoietic: No bruising, No lymphadenopathy Allergic/Immuno: No urticaria, No angioedema Neurological: No syncope, No focal symptoms, No weakness, No paresthesia, No headache, No seizure, No dizziness, No confusion, No vertigo. Social History Smoking Status Unknown if ever smoked Drug Use No Alcohol Use No Family Medical History Family Medical History Start: 07/22/18 03: 30 Freq: ONCE Status: Active Protocol: Document 07/22/18 03:30 CHRISTY (Rec: 07/22/18 05:21 CHRISTY [id number]) Family Medical History Father History Unknown Yes Ethnicity Living Status Unknown Hx Family Cancer UNKNOWN Hx Family Coronary Artery Disease UNKNOWN Hx Family Congestive Heart Failure UNKNOWN Hx Family Hypertension UNKNOWN Hx Family Stroke UNKNOWN Hx Family Diabetes UNKNOWN Hx Family Seizures UNKNOWN Hx Family Dementia UNKNOWN Hx Family AIDS UNKNOWN Hx Family COPD UNKNOWN Hx Family Hepatitis UNKNOWN Hx Family Psychiatric Problems UNKNOWN Hx Family Tuberculosis UNKNOWN Physical Exam: General: Comfortable. WN WD, HEENT: Head NC NT. Oral cavity: moist pink tongue. Eyes: No pallor . No Icterus. Pupil PERRLA. EOMI. Neck: Supple, no JVD Cardio: S1 and S2 WNL Respiratory: CTAP Abdominal: soft NT ND BS present Genital/Urinary: Extremities: right thigh has long surgical incision intact, healing well in most of the part except at the upper end, where it is erythematous. No pus no discharge. mild tenderness present. Neurological: Alert, awake, oriented x 3. Assessment: 1, right hip surgical site infection with cellulitis. Wound culture grew ESBL producing E coli. 2. 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 3. DM2 4. HTN. 5. Hyperlipidemia. Plan: Started on meropenem. It can be changed to INvanz 1 Gm IV daily for 6 weeks. There is a chance of prosthesis infection, leading to the skin with sinus tract. As there is no surgical intervention offered, will give 6 weeks of antibiotics. if she does well and orthopedic loss prevention consultant agree then lower the duration of antibiotic administration to 2 - 4 weeks. Thank you, Dr Bella for involving me in taking care of this patient. Signed, Gilbert Herrera M.D. [id number]
[2018-07-23] MEDS: Lactobacillus Rhamnosus GG 15 Billion CFU CAP.SPRINK PO SCH (08:42)
[2018-07-23] MEDS: Vitamin D3 2,000 IU SGL PO SCH (08:42)
[2018-07-23] MEDS: POLYETHYLENE GLYCOL 3350 17 GM PACK PO SCH ×2 (08:43→16:01)
[2018-07-23] MEDS: Meropenem 500 MG in Sodium Chloride 0.9% 50 ML IV SCH (15:54)
[2018-07-23] MEDS: Atorvastatin Calcium 10 MG TAB PO SCH (20:14)
[2018-07-23] MEDS: Insulin Detemir 100 units/mL 10mL Vial SUBQ SCH (20:18)
[2018-07-24] MEDS: Meropenem 500 MG in Sodium Chloride 0.9% 50 ML IV SCH (04:36)
[2018-07-24] MEDS: INSULIN ASPART SLIDING SCALE 100 UNITS/ML UNIT SUBQ SCH ×4 (06:29→21:07)
[2018-07-24] MEDS: Vitamin D3 2,000 IU SGL PO SCH (09:36)
[2018-07-24] MEDS: POLYETHYLENE GLYCOL 3350 17 GM PACK PO SCH ×2 (09:36→16:44)
[2018-07-24] MEDS: Lactobacillus Rhamnosus GG 15 Billion CFU CAP.SPRINK PO SCH (09:37)
[2018-07-24] MEDS ORDERED: Probiotic Screen MC PRN (10:30)
[2018-07-24] MEDS: Meropenem 500 MG in Sodium Chloride 0.9% 100 ML IV SCH (16:00)
--- NOTE | 2018-07-24 18:48 | Infectious Disease Prog Note ---
Infectious Disease Subjective - Review of Systems Service Date: 07/24/18 Subjective: No new change, no fever. Infectious Disease Objective - Results Result Diagrams: 07/23/18 05:00 07/23/18 05:00 Recent Labs: Laboratory Last Values WBC 7.4 Th/cmm (4.8-10.8) 07/23/18 05:00 RBC 3.55 Mil/cmm (3.80-5.20) L 07/23/18 05:00 Hgb 10.9 gm/dL (12-16) L 07/23/18 05:00 Hct 32.1 % (41.0-60) L 07/23/18 05:00 MCV 90.2 fl (81-100) 07/23/18 05:00 MCH 30.8 pg (27.0-31.0) 07/23/18 05:00 MCHC Differential 34.1 pg (28.0-36.0) 07/23/18 05:00 RDW 13.3 % (11.5-20.0) 07/23/18 05:00 Plt Count 200 Th/cmm (150-400) 07/23/18 05:00 MPV 8.1 fl 07/23/18 05:00 Neutrophils % 58.4 % (40.0-80.0) 07/23/18 05:00 Lymphocytes % 27.1 % (20.0-50.0) 07/23/18 05:00 Monocytes % 7.2 % (2.0-10.0) 07/23/18 05:00 Eosinophils % 7.2 % (0.0-5.0) H 07/23/18 05:00 Basophils % 0.1 % (0.0-2.0) 07/23/18 05:00 PT 10.0 SECONDS (9.5-11.5) 07/21/18 00:05 INR 0.96 (0.5-1.4) 07/21/18 00:05 PTT (Actin FS) 24.4 SECONDS (26.0-38.0) L 07/21/18 00:05 Sodium 137 mEq/L (136-145) 07/23/18 05:00 Potassium 3.3 mEq/L (3.5-5.1) L 07/23/18 05:00 Chloride 104 mEq/L (98-107) 07/23/18 05:00 Carbon Dioxide 27.0 mEq/L (21.0-31.0) 07/23/18 05:00 Anion Gap 9.3 (7.0-16.0) 07/23/18 05:00 BUN 8 mg/dL (7-25) 07/23/18 05:00 Creatinine 0.5 mg/dL (0.6-1.2) L 07/23/18 05:00 Est GFR ( Amer) TNP 07/23/18 05:00 Est GFR (Non-Af Amer) TNP 07/23/18 05:00 BUN/Creatinine Ratio 16.0 07/23/18 05:00 Glucose 90 mg/dL (70-105) D 07/23/18 05:00 POC Glucose 178 MG/DL (70 - 105) H 07/24/18 16:52 Whole Bld Lactic Acid 1.16 mmol/L (0.60-1.99) 07/21/18 00:05 Calcium 8.9 mg/dL (8.6-10.3) 07/23/18 05:00 Total Bilirubin 0.5 mg/dL (0.3-1.0) 07/21/18 00:05 AST 30 U/L (13-39) 07/21/18 00:05 ALT 18 U/L (7-52) 07/21/18 00:05 Alkaline Phosphatase 159 U/L (34-104) H 07/21/18 00:05 Creatine Kinase 29 U/L (30-223) L 07/21/18 00:05 Troponin I 0.02 ng/mL (0.01-0.05) 07/21/18 00:05 Total Protein 7.9 gm/dL (6.0-8.3) 07/21/18 00:05 Albumin 3.7 gm/dL (3.7-5.3) 07/21/18 00:05 Globulin 4.2 gm/dL 07/21/18 00:05 Albumin/Globulin Ratio 0.9 (1.0-1.8) L 07/21/18 00:05 Urine Source MIDSTREAM 07/22/18 05:25 Urine Color YELLOW 07/22/18 05:25 Urine Clarity CLEAR (CLEAR) 07/22/18 05:25 Urine pH 6.0 (4.6 - 8.0) 07/22/18 05:25 Ur Specific [place] <= 1.005 (1.005-1.030) 07/22/18 05:25 Urine Protein NEGATIVE mg/dL (NEGATIVE) 07/22/18 05:25 Urine Glucose (UA) NEGATIVE mg/dL (NEGATIVE) 07/22/18 05:25 Urine Ketones NEGATIVE mg/dL (NEGATIVE) 07/22/18 05:25 Urine Blood NEGATIVE (NEGATIVE) 07/22/18 05:25 Urine Nitrate NEGATIVE (NEGATIVE) 07/22/18 05:25 Urine Bilirubin NEGATIVE (NEGATIVE) 07/22/18 05:25 Urine Urobilinogen 0.2 E.U./dL (0.2 - 1.0) 07/22/18 05:25 Ur Leukocyte Esterase NEGATIVE (NEGATIVE) 07/22/18 05:25 Urine RBC 0-2 /hpf (0-5) 07/22/18 05:25 Urine WBC 2-5 /hpf (0-5) 07/22/18 05:25 Ur Epithelial Cells OCCASIONAL /lpf (FEW) 07/22/18 05:25 Urine Bacteria FEW /hpf (NONE SEEN) 07/22/18 05:25 Vancomycin Trough 5.8 ug/mL (5-10) 07/24/18 08:00 Random Vancomycin 9.6 ug/mL (5.0-40.0) 07/22/18 08:55 - Physical Exam Vitals and I&O: Vital Signs Temp 96.5 F 07/24/18 16:00 Pulse 59 07/24/18 16:00 Resp 17 07/24/18 16:00 BP 113/47 07/24/18 16:00 Pulse Ox 95 07/24/18 16:00 Intake & Output 07/23/18 07/24/18 07/24/18 18:59 06:59 18:59 Intake Total [phone] Balance 927 253 5731 Weight (lbs) 68.311 kg 66.281 kg 66.31 kg Intake: Intake, IV Amount 300 331 Meropenem 500 mg In 100 Sodium Chloride 0.9% 100 ml @ 100 mls/hr IV Q12H [facility] Rx#:[id number] Meropenem 500 mg In 50 Sodium Chloride 0.9% 50 ml @ 50 mls/hr IV Q12H [facility] Rx#:[id number] Vancomycin HCl 0.75 gm In 250 231 Sodium Chloride 0.9% 250 ml @ 165 mls/hr IV Q24HR @0900 [facility] Rx#:[id number] Oral [phone] Other: # Voids 3 3 2 # Bowel Movements 0 1 1 Stool Characteristics Soft Brown Weight Source Bedscale Bedscale Bedscale Active Medications: Current Medications Acetaminophen (Tylenol Extra Strength) 1,000 mg PO Q4H PRN PRN Reason: Pain (Moderate) Stop: 09/20/18 08:04 Acetaminophen (Tylenol) 650 mg PO Q4H PRN PRN Reason: Mild Pain or Fever >101 Acetaminophen/Hydrocodone Bitart ([place] 10 Mg/325 Mg) 1 tab PO Q8H PRN PRN Reason: Pain (Severe) Stop: 09/20/18 08:04 Last Admin: 07/22/18 23:07 Dose: 1 tab Atorvastatin Calcium (Lipitor) 20 mg PO HS [facility] Stop: 09/20/18 20:59 Last Admin: 07/23/18 20:14 Dose: 20 mg Bisacodyl (Dulcolax 10 Mg Supp) 10 mg RC DAILY PRN PRN Reason: Constipation Stop: 09/20/18 08:04 Calcium Carbonate (Calcium Carb) 1,200 mg PO DAILY [facility] Stop: 09/20/18 08:59 Last Admin: 07/24/18 09:36 Dose: 1,200 mg Cyanocobalamin (Vitamin B12) 1,000 mcg PO DAILY [facility] Stop: 09/20/18 08:59 Last Admin: 07/24/18 09:36 Dose: 1,000 mcg Dextrose (D50w) 25 ml IVP STAT PRN PRN PRN Reason: blood sugar below 60 Stop: 09/20/18 08:04 Docusate Sodium (Colace) 100 mg PO DAILY [facility] Stop: 09/20/18 08:59 Last Admin: 07/24/18 09:37 Dose: 100 mg Enalapril Maleate (Vasotec) 5 mg PO DAILY [facility] Stop: 09/20/18 08:59 Last Admin: 07/24/18 09:41 Dose: 5 mg Famotidine (Pepcid) 20 mg PO QDAC [facility] Stop: 09/21/18 07:29 Last Admin: 07/24/18 06:31 Dose: 20 mg Folic Acid (Folate) 1 mg PO DAILY [facility] Stop: 09/20/18 08:59 Last Admin: 07/24/18 09:36 Dose: 1 mg Glucagon (Glucagen) 1 mg IM STAT PRN PRN PRN Reason: blood sugar below 60 Vancomycin HCl 0.75 gm/ Sodium (Chloride) 250 mls @ 165 mls/hr IV Q12HR [facility] Stop: 09/22/18 20:59 Meropenem 500 mg/ Sodium (Chloride) 100 mls @ 100 mls/hr IV Q12H [facility] Stop: 09/20/18 04:14 Last Infusion: 07/24/18 17:00 Dose: Infused Insulin Aspart (Novolog Insulin Sliding Scale) 0 units SUBQ ACHS [facility]; Protocol Stop: 09/20/18 20:59 Last Admin: 07/24/18 16:52 Dose: 2 units Insulin Detemir (Levemir Insulin) 10 units SUBQ HS [facility] Stop: 09/20/18 20:59 Last Admin: 07/23/18 20:18 Dose: 10 units Lactobacillus Rhamnosus (Culturelle 15b) 1 each PO DAILY [facility] Stop: 09/20/18 08:59 Last Admin: 07/24/18 09:37 Dose: 1 each Magnesium Hydroxide (Milk Of Magnesia) 30 ml PO HS PRN PRN Reason: Constipation Stop: 09/20/18 08:04 Miscellaneous (Vancomycin Iv Per Pharmacy) 1 ea MC DAILY [facility] Stop: 09/20/18 08:59 Miscellaneous (Probiotic Screen) 1 ea MC PRN PRN PRN Reason: PROTOCOL Stop: 09/22/18 10:29 Ondansetron HCl (Zofran Odt) 4 mg PO Q6H PRN PRN Reason: Nausea / Vomiting Stop: 09/20/18 08:04 Polyethylene Glycol (Miralax) 17 gm PO BID [facility] Stop: 09/20/18 08:59 Last Admin: 07/24/18 16:44 Dose: 17 gm Sodium Phosphate (Fleet Enema) 135 ml RC Q2D PRN PRN Reason: Constipation Stop: 09/20/18 08:04 Vitamin D (Vitamin D3) 2,000 iu PO DAILY [facility] Stop: 09/20/18 10:59 Last Admin: 07/24/18 09:36 Dose: 2,000 iu General: no acute distress, well developed, well nourished HEENT: atraumatic, normocephalic, PERRLA Neck: supple, no thyromegaly Cardiovascular: S1S2, regular Lungs: clear to auscultation bilaterally, clear to percussion Abdomen: soft, no tender, no distended, no mass Extremities: other (Right hip surgical wound is dry), no cyanosis, no clubbing, no edema Neurological: awake, alert, oriented Skin: intact Infectious Disease Assmt/Plan - Assessment Assessment: 1, right hip surgical site infection with cellulitis. Wound culture grew ESBL producing E coli. 2. 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 3. DM2 4. HTN. 5. Hyperlipidemia. - Plan Plan: Will continue antibiotics for 6weeks, if she does will shorten duration of antibiotics to 2 to 4 weeks depending on the clinical status/
[2018-07-24] MEDS: Atorvastatin Calcium 10 MG TAB PO SCH (21:08)
[2018-07-24] MEDS: Insulin Detemir 100 units/mL 10mL Vial SUBQ SCH (21:16)
--- NOTE | 2018-07-24 22:45 | Progress Notes ---
DATE: 07/24/2018 SUBJECTIVE: The patient was seen in her room. The patient denies any pain or discomfort at this time. The patient is awake and alert, but episodes of forgetful. Otherwise, the patient appears to be in no acute distress. OBJECTIVE: VITAL SIGNS: Temperature 97.4, heart rate 60, blood pressure 136/54, respirations 17, 98% on room air. HEENT: Head is atraumatic and normocephalic. Eyes: Bilateral conjunctivae are clear. Bilateral pupils are equally round and reactive. NECK: Supple. No JVD. CARDIOVASCULAR: S1 and S2 without murmur. PULMONARY: Clear to auscultation. GASTROINTESTINAL: Soft and nontender without guarding. Positive bowel sounds. MUSCULOSKELETAL: No clubbing. No cyanosis noted. Positive redness on the right hip. ASSESSMENT: 1. Cellulitis in the right hip on surgical site status post ORIF. 2. Hypertension. 3. Hyperlipidemia. 4. Diabetes. PLAN: We will continue current antibiotics and we will follow up with the ID doctor for antibiotic management. Treatment plans were discussed with the patient's nurse. Treatment plans were discussed with Dr. Bella. JOB# [id number]
[2018-07-25] MEDS: Meropenem 500 MG in Sodium Chloride 0.9% 100 ML IV SCH (04:37)
[2018-07-25] MEDS: INSULIN ASPART SLIDING SCALE 100 UNITS/ML UNIT SUBQ SCH ×4 (07:48→21:24)
[2018-07-25 09:10] LABS: % BASOPHILS 0.5 % (0.0-2.0); % EOSINOPHILS 6.4 % (0.0-5.0); % LYMPHOCYTES 26.1 % (20.0-50.0); % MONOCYTES 8.1 % (2.0-10.0); % NEUTROPHILS 58.9 % (40.0-80.0); EOSINOPHILE ABSOLUTE 0.4 Th/cmm (0.1-0.4); HEMATOCRIT 35.8 % (41.0-60); LYMPHOCYTE ABSOLUTE 1.7 Th/cmm (1.5-3.0); MEAN CELL VOLUME 89.9 fl (81-100); MEAN CORPUSCULAR HEMOGLOBIN 30.2 pg (27.0-31.0); MEAN CORPUSCULAR HGB CONC 33.6 pg (28.0-36.0); MEAN PLATELET VOLUME 7.8 fl; MONOCYTE ABSOLUTE 0.5 Th/cmm (0.3-1.0); NEUTROPHILE ABSOLUTE 4.1 Th/cmm (1.8-8.0); PLATELET COUNT 219 Th/cmm (150-400); RED BLOOD COUNT 3.98 Mil/cmm (3.80-5.20); RED CELL DISTRIBUTION WIDTH 13.5 % (11.5-20.0); WHITE BLOOD COUNT 6.7 Th/cmm (4.8-10.8)
[2018-07-25 09:28] LABS: ANION GAP 10.3 (7.0-16.0); BUN - UREA NITROGEN 11 mg/dL (7-25); CALCIUM SERUM 9.4 mg/dL (8.6-10.3); CARBON DIOXIDE 27.2 mEq/L (21.0-31.0); CHLORIDE 104 mEq/L (98-107); CREATININE - SERUM 0.5 mg/dL (0.6-1.2); GLUCOSE 98 mg/dL (70-105); POTASSIUM SERUM 3.5 mEq/L (3.5-5.1); SODIUM SERUM 138 mEq/L (136-145)
[2018-07-25] MEDS: POLYETHYLENE GLYCOL 3350 17 GM PACK PO SCH ×2 (09:49→17:26)
[2018-07-25] MEDS: Vitamin D3 2,000 IU SGL PO SCH (09:49)
[2018-07-25] MEDS: Lactobacillus Rhamnosus GG 15 Billion CFU CAP.SPRINK PO SCH (09:49)
--- NOTE | 2018-07-25 12:29 | General Progress Note ---
Subjective - Review of Systems Events since last encounter: no fever denies cp,sob Objective - Results Result Diagrams: 07/25/18 08:54 07/25/18 08:54 Recent Labs: Laboratory Last Values WBC 6.7 Th/cmm (4.8-10.8) 07/25/18 08:54 RBC 3.98 Mil/cmm (3.80-5.20) 07/25/18 08:54 Hgb 12.0 gm/dL (12-16) 07/25/18 08:54 Hct 35.8 % (41.0-60) L 07/25/18 08:54 MCV 89.9 fl (81-100) 07/25/18 08:54 MCH 30.2 pg (27.0-31.0) 07/25/18 08:54 MCHC Differential 33.6 pg (28.0-36.0) 07/25/18 08:54 RDW 13.5 % (11.5-20.0) 07/25/18 08:54 Plt Count 219 Th/cmm (150-400) 07/25/18 08:54 MPV 7.8 fl 07/25/18 08:54 Neutrophils % 58.9 % (40.0-80.0) 07/25/18 08:54 Lymphocytes % 26.1 % (20.0-50.0) 07/25/18 08:54 Monocytes % 8.1 % (2.0-10.0) 07/25/18 08:54 Eosinophils % 6.4 % (0.0-5.0) H 07/25/18 08:54 Basophils % 0.5 % (0.0-2.0) 07/25/18 08:54 PT 10.0 SECONDS (9.5-11.5) 07/21/18 00:05 INR 0.96 (0.5-1.4) 07/21/18 00:05 PTT (Actin FS) 24.4 SECONDS (26.0-38.0) L 07/21/18 00:05 Sodium 138 mEq/L (136-145) 07/25/18 08:54 Potassium 3.5 mEq/L (3.5-5.1) 07/25/18 08:54 Chloride 104 mEq/L (98-107) 09/16/18 08:54 Carbon Dioxide 27.2 mEq/L (21.0-31.0) 07/25/18 08:54 Anion Gap 10.3 (7.0-16.0) 07/25/18 08:54 BUN 11 mg/dL (7-25) 07/25/18 08:54 Creatinine 0.5 mg/dL (0.6-1.2) L 07/25/18 08:54 Est GFR ( Amer) TNP 07/25/18 08:54 Est GFR (Non-Af Amer) TNP 07/25/18 08:54 BUN/Creatinine Ratio 22.0 07/25/18 08:54 Glucose 98 mg/dL (70-105) 07/25/18 08:54 POC Glucose 158 MG/DL (70 - 105) H 07/25/18 12:24 Whole Bld Lactic Acid 1.16 mmol/L (0.60-1.99) 07/21/18 00:05 Calcium 9.4 mg/dL (8.6-10.3) 07/25/18 08:54 Total Bilirubin 0.5 mg/dL (0.3-1.0) 07/21/18 00:05 AST 30 U/L (13-39) 07/21/18 00:05 ALT 18 U/L (7-52) 07/21/18 00:05 Alkaline Phosphatase 159 U/L (34-104) H 07/21/18 00:05 Creatine Kinase 29 U/L (30-223) L 07/21/18 00:05 Troponin I 0.02 ng/mL (0.01-0.05) 07/21/18 00:05 Total Protein 7.9 gm/dL (6.0-8.3) 07/21/18 00:05 Albumin 3.7 gm/dL (3.7-5.3) 07/21/18 00:05 Globulin 4.2 gm/dL 07/21/18 00:05 Albumin/Globulin Ratio 0.9 (1.0-1.8) L 07/21/18 00:05 Urine Source MIDSTREAM 07/22/18 05:25 Urine Color YELLOW 07/22/18 05:25 Urine Clarity CLEAR (CLEAR) 07/22/18 05:25 Urine pH 6.0 (4.6 - 8.0) 07/22/18 05:25 Ur Specific [place] <= 1.005 (1.005-1.030) 07/22/18 05:25 Urine Protein NEGATIVE mg/dL (NEGATIVE) 07/22/18 05:25 Urine Glucose (UA) NEGATIVE mg/dL (NEGATIVE) 07/22/18 05:25 Urine Ketones NEGATIVE mg/dL (NEGATIVE) 07/22/18 05:25 Urine Blood NEGATIVE (NEGATIVE) 07/22/18 05:25 Urine Nitrate NEGATIVE (NEGATIVE) 07/22/18 05:25 Urine Bilirubin NEGATIVE (NEGATIVE) 07/22/18 05:25 Urine Urobilinogen 0.2 E.U./dL (0.2 - 1.0) 07/22/18 05:25 Ur Leukocyte Esterase NEGATIVE (NEGATIVE) 07/22/18 05:25 Urine RBC 0-2 /hpf (0-5) 07/22/18 05:25 Urine WBC 2-5 /hpf (0-5) 07/22/18 05:25 Ur Epithelial Cells OCCASIONAL /lpf (FEW) 07/22/18 05:25 Urine Bacteria FEW /hpf (NONE SEEN) 07/22/18 05:25 Vancomycin Trough 5.8 ug/mL (5-10) 07/24/18 08:00 Random Vancomycin 9.6 ug/mL (5.0-40.0) 07/22/18 08:55 - Physical Exam Vitals and I&O: Vital Signs Temp 97.8 F 07/25/18 08:01 Pulse 62 07/25/18 09:49 Resp 18 07/25/18 08:01 BP 135/59 07/25/18 09:49 Pulse Ox 98 07/25/18 08:01 Intake & Output 07/24/18 07/25/18 07/25/18 18:59 06:59 18:59 Intake Total 1431 250 Balance 1431 250 Weight (lbs) 66.31 kg Intake: Intake, IV Amount 331 250 Meropenem 500 mg In 100 Sodium Chloride 0.9% 100 ml @ 100 mls/hr IV Q12H [facility] Rx#:[id number] Vancomycin HCl 0.75 gm In 250 Sodium Chloride 0.9% 250 ml @ 165 mls/hr IV Q12HR [facility] Rx#:[id number] Vancomycin HCl 0.75 gm In 231 Sodium Chloride 0.9% 250 ml @ 165 mls/hr IV Q24HR @0900 [facility] Rx#:[id number] Oral 1100 Other: # Voids 2 # Bowel Movements 1 Stool Characteristics Soft Soft Brown Brown Weight Source Bedscale Active Medications: Current Medications Acetaminophen (Tylenol Extra Strength) 1,000 mg PO Q4H PRN PRN Reason: Pain (Moderate) Stop: 09/20/18 08:04 Acetaminophen (Tylenol) 650 mg PO Q4H PRN PRN Reason: Mild Pain or Fever >101 Acetaminophen/Hydrocodone Bitart ([place] 10 Mg/325 Mg) 1 tab PO Q8H PRN PRN Reason: Pain (Severe) Stop: 09/20/18 08:04 Last Admin: 07/22/18 23:07 Dose: 1 tab Atorvastatin Calcium (Lipitor) 20 mg PO HS [facility] Stop: 09/20/18 20:59 Last Admin: 07/24/18 21:08 Dose: 20 mg Bisacodyl (Dulcolax 10 Mg Supp) 10 mg RC DAILY PRN PRN Reason: Constipation Stop: 09/20/18 08:04 Calcium Carbonate (Calcium Carb) 1,200 mg PO DAILY [facility] Stop: 09/20/18 08:59 Last Admin: 07/25/18 09:49 Dose: 1,200 mg Cyanocobalamin (Vitamin B12) 1,000 mcg PO DAILY [facility] Stop: 09/20/18 08:59 Last Admin: 07/25/18 09:49 Dose: 1,000 mcg Dextrose (D50w) 25 ml IVP STAT PRN PRN PRN Reason: blood sugar below 60 Stop: 09/20/18 08:04 Docusate Sodium (Colace) 100 mg PO DAILY [facility] Stop: 09/20/18 08:59 Last Admin: 07/25/18 09:49 Dose: 100 mg Enalapril Maleate (Vasotec) 5 mg PO DAILY [facility] Stop: 09/20/18 08:59 Last Admin: 07/25/18 09:49 Dose: 5 mg Famotidine (Pepcid) 20 mg PO QDAC [facility] Stop: 09/21/18 07:29 Last Admin: 07/25/18 06:44 Dose: 20 mg Folic Acid (Folate) 1 mg PO DAILY [facility] Stop: 09/20/18 08:59 Last Admin: 07/25/18 09:49 Dose: 1 mg Glucagon (Glucagen) 1 mg IM STAT PRN PRN PRN Reason: blood sugar below 60 Vancomycin HCl 0.75 gm/ Sodium (Chloride) 250 mls @ 165 mls/hr IV Q12HR [facility] Stop: 09/22/18 20:59 Last Admin: 07/25/18 09:48 Dose: 165 mls/hr Meropenem 1 gm/ Sodium (Chloride) 100 mls @ 100 mls/hr IV Q12H [facility] Stop: 09/23/18 15:59 Insulin Aspart (Novolog Insulin Sliding Scale) 0 units SUBQ ACHS [facility]; Protocol Stop: 09/20/18 20:59 Last Admin: 07/25/18 07:48 Dose: Not Given Insulin Detemir (Levemir Insulin) 10 units SUBQ HS [facility] Stop: 09/20/18 20:59 Last Admin: 07/24/18 21:16 Dose: 10 units Lactobacillus Rhamnosus (Culturelle 15b) 1 each PO DAILY [facility] Stop: 09/20/18 08:59 Last Admin: 07/25/18 09:49 Dose: 1 each Magnesium Hydroxide (Milk Of Magnesia) 30 ml PO HS PRN PRN Reason: Constipation Stop: 09/20/18 08:04 Miscellaneous (Vancomycin Iv Per Pharmacy) 1 ea [facility] DAILY [facility] Stop: 09/20/18 08:59 Miscellaneous (Probiotic Screen) 1 ea MC PRN PRN PRN Reason: PROTOCOL Stop: 09/22/18 10:29 Ondansetron HCl (Zofran Odt) 4 mg PO Q6H PRN PRN Reason: Nausea / Vomiting Stop: 09/20/18 08:04 Polyethylene Glycol (Miralax) 17 gm PO BID [facility] Stop: 09/20/18 08:59 Last Admin: 07/25/18 09:49 Dose: 17 gm Sodium Phosphate (Fleet Enema) 135 ml RC Q2D PRN PRN Reason: Constipation Stop: 09/20/18 08:04 Vitamin D (Vitamin D3) 2,000 iu PO DAILY [facility] Stop: 09/20/18 10:59 Last Admin: 07/25/18 09:49 Dose: 2,000 iu
--- NOTE | 2018-07-25 19:33 | Infectious Disease Prog Note ---
Infectious Disease Subjective - Review of Systems Service Date: 07/25/18 Subjective: No new change, no fever. Infectious Disease Objective - Results Result Diagrams: 07/25/18 08:54 07/25/18 08:54 Recent Labs: Laboratory Last Values WBC 6.7 Th/cmm (4.8-10.8) 07/25/18 08:54 RBC 3.98 Mil/cmm (3.80-5.20) 07/25/18 08:54 Hgb 12.0 gm/dL (12-16) 07/25/18 08:54 Hct 35.8 % (41.0-60) L 07/25/18 08:54 MCV 89.9 fl (81-100) 07/25/18 08:54 MCH 30.2 pg (27.0-31.0) 07/25/18 08:54 MCHC Differential 33.6 pg (28.0-36.0) 07/25/18 08:54 RDW 13.5 % (11.5-20.0) 07/25/18 08:54 Plt Count 219 Th/cmm (150-400) 07/25/18 08:54 MPV 7.8 fl 07/25/18 08:54 Neutrophils % 58.9 % (40.0-80.0) 07/25/18 08:54 Lymphocytes % 26.1 % (20.0-50.0) 07/25/18 08:54 Monocytes % 8.1 % (2.0-10.0) 07/25/18 08:54 Eosinophils % 6.4 % (0.0-5.0) H 07/25/18 08:54 Basophils % 0.5 % (0.0-2.0) 07/25/18 08:54 PT 10.0 SECONDS (9.5-11.5) 07/21/18 00:05 INR 0.96 (0.5-1.4) 07/21/18 00:05 PTT (Actin FS) 24.4 SECONDS (26.0-38.0) L 07/21/18 00:05 Sodium 138 mEq/L (136-145) 07/25/18 08:54 Potassium 3.5 mEq/L (3.5-5.1) 07/25/18 08:54 Chloride 104 mEq/L (98-107) 07/25/18 08:54 Carbon Dioxide 27.2 mEq/L (21.0-31.0) 07/25/18 08:54 Anion Gap 10.3 (7.0-16.0) 07/25/18 08:54 BUN 11 mg/dL (7-25) 07/25/18 08:54 Creatinine 0.5 mg/dL (0.6-1.2) L 07/25/18 08:54 Est GFR ( Amer) TNP 07/25/18 08:54 Est GFR (Non-Af Amer) TNP 07/25/18 08:54 BUN/Creatinine Ratio 22.0 07/25/18 08:54 Glucose 98 mg/dL (70-105) 07/25/18 08:54 POC Glucose 176 MG/DL (70 - 105) H 07/25/18 16:38 Whole Bld Lactic Acid 1.16 mmol/L (0.60-1.99) 07/21/18 00:05 Calcium 9.4 mg/dL (8.6-10.3) 07/25/18 08:54 Total Bilirubin 0.5 mg/dL (0.3-1.0) 07/21/18 00:05 AST 30 U/L (13-39) 07/21/18 00:05 ALT 18 U/L (7-52) 07/21/18 00:05 Alkaline Phosphatase 159 U/L (34-104) H 07/21/18 00:05 Creatine Kinase 29 U/L (30-223) L 07/21/18 00:05 Troponin I 0.02 ng/mL (0.01-0.05) 07/21/18 00:05 Total Protein 7.9 gm/dL (6.0-8.3) 07/21/18 00:05 Albumin 3.7 gm/dL (3.7-5.3) 07/21/18 00:05 Globulin 4.2 gm/dL 07/21/18 00:05 Albumin/Globulin Ratio 0.9 (1.0-1.8) L 07/21/18 00:05 Urine Source MIDSTREAM 07/22/18 05:25 Urine Color YELLOW 07/22/18 05:25 Urine Clarity CLEAR (CLEAR) 07/22/18 05:25 Urine pH 6.0 (4.6 - 8.0) 07/22/18 05:25 Ur Specific [place] <= 1.005 (1.005-1.030) 07/22/18 05:25 Urine Protein NEGATIVE mg/dL (NEGATIVE) 07/22/18 05:25 Urine Glucose (UA) NEGATIVE mg/dL (NEGATIVE) 07/22/18 05:25 Urine Ketones NEGATIVE mg/dL (NEGATIVE) 07/22/18 05:25 Urine Blood NEGATIVE (NEGATIVE) 07/22/18 05:25 Urine Nitrate NEGATIVE (NEGATIVE) 07/22/18 05:25 Urine Bilirubin NEGATIVE (NEGATIVE) 07/22/18 05:25 Urine Urobilinogen 0.2 E.U./dL (0.2 - 1.0) 07/22/18 05:25 Ur Leukocyte Esterase NEGATIVE (NEGATIVE) 07/22/18 05:25 Urine RBC 0-2 /hpf (0-5) 07/22/18 05:25 Urine WBC 2-5 /hpf (0-5) 07/22/18 05:25 Ur Epithelial Cells OCCASIONAL /lpf (FEW) 07/22/18 05:25 Urine Bacteria FEW /hpf (NONE SEEN) 07/22/18 05:25 Vancomycin Trough 5.8 ug/mL (5-10) 07/24/18 08:00 Random Vancomycin 9.6 ug/mL (5.0-40.0) 07/22/18 08:55 - Physical Exam Vitals and I&O: Vital Signs Temp 97.8 F 07/25/18 16:00 Pulse 62 07/25/18 16:00 Resp 18 07/25/18 16:00 BP 135/59 07/25/18 16:00 Pulse Ox 98 07/25/18 16:00 Intake & Output 07/25/18 07/25/18 07/26/18 06:59 18:59 06:59 Intake Total 250 850 Balance 250 850 Weight (lbs) 64.954 kg Intake: Intake, IV Amount 250 Vancomycin HCl 0.75 gm In 250 Sodium Chloride 0.9% 250 ml @ 165 mls/hr IV Q12HR [facility] Rx#:[id number] Oral 850 Other: # Voids 5 # Bowel Movements 6 Stool Characteristics Soft Soft Brown Brown Weight Source Bedscale Active Medications: Current Medications Acetaminophen (Tylenol Extra Strength) 1,000 mg PO Q4H PRN PRN Reason: Pain (Moderate) Stop: 09/20/18 08:04 Acetaminophen (Tylenol) 650 mg PO Q4H PRN PRN Reason: Mild Pain or Fever >101 Acetaminophen/Hydrocodone Bitart ([place] 10 Mg/325 Mg) 1 tab PO Q8H PRN PRN Reason: Pain (Severe) Stop: 09/20/18 08:04 Last Admin: 07/22/18 23:07 Dose: 1 tab Atorvastatin Calcium (Lipitor) 20 mg PO HS [facility] Stop: 09/20/18 20:59 Last Admin: 07/24/18 21:08 Dose: 20 mg Bisacodyl (Dulcolax 10 Mg Supp) 10 mg RC DAILY PRN PRN Reason: Constipation Stop: 09/20/18 08:04 Calcium Carbonate (Calcium Carb) 1,200 mg PO DAILY [facility] Stop: 09/20/18 08:59 Last Admin: 07/25/18 09:49 Dose: 1,200 mg Cyanocobalamin (Vitamin B12) 1,000 mcg PO DAILY [facility] Stop: 09/20/18 08:59 Last Admin: 07/25/18 09:49 Dose: 1,000 mcg Dextrose (D50w) 25 ml IVP STAT PRN PRN PRN Reason: blood sugar below 60 Stop: 09/20/18 08:04 Docusate Sodium (Colace) 100 mg PO DAILY [facility] Stop: 09/20/18 08:59 Last Admin: 07/25/18 09:49 Dose: 100 mg Enalapril Maleate (Vasotec) 5 mg PO DAILY [facility] Stop: 09/20/18 08:59 Last Admin: 07/25/18 09:49 Dose: 5 mg Famotidine (Pepcid) 20 mg PO QDAC [facility] Stop: 09/21/18 07:29 Last Admin: 07/25/18 06:44 Dose: 20 mg Folic Acid (Folate) 1 mg PO DAILY [facility] Stop: 09/20/18 08:59 Last Admin: 07/25/18 09:49 Dose: 1 mg Glucagon (Glucagen) 1 mg IM STAT PRN PRN PRN Reason: blood sugar below 60 Vancomycin HCl 0.75 gm/ Sodium (Chloride) 250 mls @ 165 mls/hr IV Q12HR [facility] Stop: 09/22/18 20:59 Last Admin: 07/25/18 09:48 Dose: 165 mls/hr Meropenem 1 gm/ Sodium (Chloride) 100 mls @ 100 mls/hr IV Q12H [facility] Stop: 09/23/18 15:59 Last Admin: 07/25/18 17:25 Dose: 100 mls/hr Insulin Aspart (Novolog Insulin Sliding Scale) 0 units SUBQ ACHS [facility]; Protocol Stop: 09/20/18 20:59 Last Admin: 07/25/18 17:25 Dose: 2 units Insulin Detemir (Levemir Insulin) 10 units SUBQ HS [facility] Stop: 09/20/18 20:59 Last Admin: 07/24/18 21:16 Dose: 10 units Lactobacillus Rhamnosus (Culturelle 15b) 1 each PO DAILY [facility] Stop: 09/20/18 08:59 Last Admin: 07/25/18 09:49 Dose: 1 each Magnesium Hydroxide (Milk Of Magnesia) 30 ml PO HS PRN PRN Reason: Constipation Stop: 09/20/18 08:04 Miscellaneous (Vancomycin Iv Per Pharmacy) 1 ea DAILY [facility] Stop: 09/20/18 08:59 Miscellaneous (Probiotic Screen) 1 ea PRN PRN PRN Reason: PROTOCOL Stop: 09/22/18 10:29 Ondansetron HCl (Zofran Odt) 4 mg PO Q6H PRN PRN Reason: Nausea / Vomiting Stop: 09/20/18 08:04 Polyethylene Glycol (Miralax) 17 gm PO BID [facility] Stop: 09/20/18 08:59 Last Admin: 07/25/18 17:26 Dose: Not Given Sodium Phosphate (Fleet Enema) 135 ml RC Q2D PRN PRN Reason: Constipation Stop: 09/20/18 08:04 Vitamin D (Vitamin D3) 2,000 iu PO DAILY [facility] Stop: 09/20/18 10:59 Last Admin: 07/25/18 09:49 Dose: 2,000 iu General: no acute distress, well developed, well nourished HEENT: atraumatic, normocephalic, PERRLA Neck: supple, no thyromegaly Cardiovascular: S1S2, regular Lungs: clear to auscultation bilaterally, clear to percussion Abdomen: soft, bowel sounds, no tender, no distended, no rebound Extremities: other (right surgical incision is healthy), no cyanosis, no clubbing, no edema Neurological: awake, alert, oriented Skin: intact Infectious Disease Assmt/Plan - Assessment Assessment: 1, right hip surgical site infection with cellulitis. Wound culture grew ESBL producing E coli. 2. 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 3. DM2 4. HTN. 5. Hyperlipidemia. - Plan Plan: Will plan to continue antibiotics for 6 weeks, if she does will shorten duration of antibiotics to 2 to 4 weeks depending on the clinical status/
[2018-07-25] MEDS: Atorvastatin Calcium 10 MG TAB PO SCH (20:20)
[2018-07-25] MEDS: Insulin Detemir 100 units/mL 10mL Vial SUBQ SCH (21:22)
[2018-07-26] MEDS: Vitamin D3 2,000 IU SGL PO SCH (08:24)
[2018-07-26] MEDS: POLYETHYLENE GLYCOL 3350 17 GM PACK PO SCH ×2 (08:26→17:02)
[2018-07-26] MEDS: Lactobacillus Rhamnosus GG 15 Billion CFU CAP.SPRINK PO SCH (08:26)
--- NOTE | 2018-07-26 13:31 | Infectious Disease Prog Note ---
Infectious Disease Subjective - Review of Systems Service Date: 07/26/18 Subjective: No new change, no fever. Infectious Disease Objective - Results Result Diagrams: 07/25/18 08:54 07/26/18 07:45 Recent Labs: Laboratory Last Values WBC 6.7 Th/cmm (4.8-10.8) 07/25/18 08:54 RBC 3.98 Mil/cmm (3.80-5.20) 07/25/18 08:54 Hgb 12.0 gm/dL (12-16) 07/25/18 08:54 Hct 35.8 % (41.0-60) L 07/25/18 08:54 MCV 89.9 fl (81-100) 07/25/18 08:54 MCH 30.2 pg (27.0-31.0) 07/25/18 08:54 MCHC Differential 33.6 pg (28.0-36.0) 07/25/18 08:54 RDW 13.5 % (11.5-20.0) 07/25/18 08:54 Plt Count 219 Th/cmm (150-400) 07/25/18 08:54 MPV 7.8 fl 07/25/18 08:54 Neutrophils % 58.9 % (40.0-80.0) 07/25/18 08:54 Lymphocytes % 26.1 % (20.0-50.0) 07/25/18 08:54 Monocytes % 8.1 % (2.0-10.0) 07/25/18 08:54 Eosinophils % 6.4 % (0.0-5.0) H 07/25/18 08:54 Basophils % 0.5 % (0.0-2.0) 07/25/18 08:54 PT 10.0 SECONDS (9.5-11.5) 07/21/18 00:05 INR 0.96 (0.5-1.4) 07/21/18 00:05 PTT (Actin FS) 24.4 SECONDS (26.0-38.0) L 07/21/18 00:05 Sodium 138 mEq/L (136-145) 07/25/18 08:54 Potassium 3.5 mEq/L (3.5-5.1) 07/25/18 08:54 Chloride 104 mEq/L (98-107) 07/25/18 08:54 Carbon Dioxide 27.2 mEq/L (21.0-31.0) 07/25/18 08:54 Anion Gap 10.3 (7.0-16.0) 07/25/18 08:54 BUN 10 mg/dL (7-25) 07/26/18 07:45 Creatinine 0.6 mg/dL (0.6-1.2) 07/26/18 07:45 Est GFR ( Amer) TNP 07/25/18 08:54 Est GFR (Non-Af Amer) TNP 07/25/18 08:54 BUN/Creatinine Ratio 22.0 07/25/18 08:54 Glucose 98 mg/dL (70-105) 07/25/18 08:54 POC Glucose 135 MG/DL (70 - 105) H 07/26/18 13:07 Whole Bld Lactic Acid 1.16 mmol/L (0.60-1.99) 07/21/18 00:05 Calcium 9.4 mg/dL (8.6-10.3) 07/25/18 08:54 Total Bilirubin 0.5 mg/dL (0.3-1.0) 07/21/18 00:05 AST 30 U/L (13-39) 07/21/18 00:05 ALT 18 U/L (7-52) 07/21/18 00:05 Alkaline Phosphatase 159 U/L (34-104) H 07/21/18 00:05 Creatine Kinase 29 U/L (30-223) L 07/21/18 00:05 Troponin I 0.02 ng/mL (0.01-0.05) 07/21/18 00:05 Total Protein 7.9 gm/dL (6.0-8.3) 07/21/18 00:05 Albumin 3.7 gm/dL (3.7-5.3) 07/21/18 00:05 Globulin 4.2 gm/dL 07/21/18 00:05 Albumin/Globulin Ratio 0.9 (1.0-1.8) L 07/21/18 00:05 Urine Source MIDSTREAM 07/22/18 05:25 Urine Color YELLOW 07/22/18 05:25 Urine Clarity CLEAR (CLEAR) 07/22/18 05:25 Urine pH 6.0 (4.6 - 8.0) 07/22/18 05:25 Ur Specific [place] <= 1.005 (1.005-1.030) 07/22/18 05:25 Urine Protein NEGATIVE mg/dL (NEGATIVE) 07/22/18 05:25 Urine Glucose (UA) NEGATIVE mg/dL (NEGATIVE) 07/22/18 05:25 Urine Ketones NEGATIVE mg/dL (NEGATIVE) 07/22/18 05:25 Urine Blood NEGATIVE (NEGATIVE) 07/22/18 05:25 Urine Nitrate NEGATIVE (NEGATIVE) 07/22/18 05:25 Urine Bilirubin NEGATIVE (NEGATIVE) 07/22/18 05:25 Urine Urobilinogen 0.2 E.U./dL (0.2 - 1.0) 07/22/18 05:25 Ur Leukocyte Esterase NEGATIVE (NEGATIVE) 07/22/18 05:25 Urine RBC 0-2 /hpf (0-5) 07/22/18 05:25 Urine WBC 2-5 /hpf (0-5) 07/22/18 05:25 Ur Epithelial Cells OCCASIONAL /lpf (FEW) 07/22/18 05:25 Urine Bacteria FEW /hpf (NONE SEEN) 07/22/18 05:25 Vancomycin Trough 15.7 ug/mL (5-10) H 07/26/18 07:45 Random Vancomycin 9.6 ug/mL (5.0-40.0) 07/22/18 08:55 - Physical Exam Vitals and I&O: Vital Signs Temp 98.6 F 07/26/18 00:00 Pulse 75 07/26/18 08:25 Resp 18 07/26/18 04:00 BP 122/69 07/26/18 08:25 Pulse Ox 98 07/26/18 00:00 Intake & Output 07/25/18 07/26/18 07/26/18 18:59 06:59 18:59 Intake Total 1100 550 Balance 1100 550 Weight (lbs) 64.954 kg 64.864 kg Intake: Intake, IV Amount 250 250 Vancomycin HCl 0.75 gm In 250 250 Sodium Chloride 0.9% 250 ml @ 165 mls/hr IV Q12HR [facility] Rx#:[id number] Oral 850 300 Other: # Voids 5 3 # Bowel Movements 6 Stool Characteristics Soft Brown Weight Source Bedscale Estimated Active Medications: Current Medications Acetaminophen (Tylenol Extra Strength) 1,000 mg PO Q4H PRN PRN Reason: Pain (Moderate) Stop: 09/20/18 08:04 Acetaminophen (Tylenol) 650 mg PO Q4H PRN PRN Reason: Mild Pain or Fever >101 Acetaminophen/Hydrocodone Bitart ([place] 10 Mg/325 Mg) 1 tab PO Q8H PRN PRN Reason: Pain (Severe) Stop: 09/20/18 08:04 Last Admin: 07/22/18 23:07 Dose: 1 tab Atorvastatin Calcium (Lipitor) 20 mg PO HS [facility] Stop: 09/20/18 20:59 Last Admin: 07/25/18 20:20 Dose: 20 mg Bisacodyl (Dulcolax 10 Mg Supp) 10 mg RC DAILY PRN PRN Reason: Constipation Stop: 09/20/18 08:04 Calcium Carbonate (Calcium Carb) 1,200 mg PO DAILY [facility] Stop: 09/20/18 08:59 Last Admin: 07/26/18 08:34 Dose: 1,200 mg Cyanocobalamin (Vitamin B12) 1,000 mcg PO DAILY [facility] Stop: 09/20/18 08:59 Last Admin: 07/26/18 08:24 Dose: 1,000 mcg Dextrose (D50w) 25 ml IVP STAT PRN PRN PRN Reason: blood sugar below 60 Stop: 09/20/18 08:04 Docusate Sodium (Colace) 100 mg PO DAILY [facility] Stop: 09/20/18 08:59 Last Admin: 07/26/18 08:26 Dose: 100 mg Enalapril Maleate (Vasotec) 5 mg PO DAILY [facility] Stop: 09/20/18 08:59 Last Admin: 07/26/18 08:25 Dose: 5 mg Famotidine (Pepcid) 20 mg PO QDAC [facility] Stop: 09/21/18 07:29 Last Admin: 07/26/18 06:43 Dose: 20 mg Folic Acid (Folate) 1 mg PO DAILY [facility] Stop: 09/20/18 08:59 Last Admin: 07/26/18 10:44 Dose: 1 mg Glucagon (Glucagen) 1 mg IM STAT PRN PRN PRN Reason: blood sugar below 60 Vancomycin HCl 0.75 gm/ Sodium (Chloride) 250 mls @ 165 mls/hr IV Q12HR [facility] Stop: 11/14/18 20:59 Last Admin: 07/26/18 08:34 Dose: 165 mls/hr Meropenem 1 gm/ Sodium (Chloride) 100 mls @ 100 mls/hr IV Q12H [facility] Stop: 09/23/18 15:59 Last Admin: 07/25/18 17:25 Dose: 100 mls/hr Insulin Aspart (Novolog Insulin Sliding Scale) 0 units SUBQ ACHS [facility]; Protocol Stop: 09/20/18 20:59 Last Admin: 07/25/18 21:24 Dose: 2 units Insulin Detemir (Levemir Insulin) 10 units SUBQ HS [facility] Stop: 09/20/18 20:59 Last Admin: 07/25/18 21:22 Dose: 10 units Lactobacillus Rhamnosus (Culturelle 15b) 1 each PO DAILY [facility] Stop: 09/20/18 08:59 Last Admin: 07/26/18 08:26 Dose: 1 each Magnesium Hydroxide (Milk Of Magnesia) 30 ml PO HS PRN PRN Reason: Constipation Stop: 09/20/18 08:04 Miscellaneous (Vancomycin Iv Per Pharmacy) 1 ea MC DAILY [facility] Stop: 09/20/18 08:59 Miscellaneous (Probiotic Screen) 1 ea MC PRN PRN PRN Reason: PROTOCOL Stop: 09/22/18 10:29 Ondansetron HCl (Zofran Odt) 4 mg PO Q6H PRN PRN Reason: Nausea / Vomiting Stop: 09/20/18 08:04 Polyethylene Glycol (Miralax) 17 gm PO BID [facility] Stop: 09/20/18 08:59 Last Admin: 07/26/18 08:26 Dose: 17 gm Sodium Phosphate (Fleet Enema) 135 ml RC Q2D PRN PRN Reason: Constipation Stop: 09/20/18 08:04 Vitamin D (Vitamin D3) 2,000 iu PO DAILY [facility] Stop: 09/20/18 10:59 Last Admin: 07/26/18 08:24 Dose: 2,000 iu General: no acute distress, well developed, well nourished HEENT: atraumatic, normocephalic, PERRLA Neck: supple, no thyromegaly Cardiovascular: S1S2, regular Lungs: clear to auscultation bilaterally, clear to percussion Abdomen: soft, no tender, no distended Extremities: no cyanosis, no clubbing, no edema Neurological: awake, alert, oriented Skin: other (Surgical incision intact.) Infectious Disease Assmt/Plan - Assessment Assessment: 1, right hip surgical site infection with cellulitis. Wound culture grew ESBL producing E coli. 2. 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 3. DM2 4. HTN. 5. Hyperlipidemia. - Plan Plan: Will plan to continue antibiotics for 6 weeks, if she does will shorten duration of antibiotics to 2 to 4 weeks depending on the clinical status/
--- NOTE | 2018-07-26 16:07 | General Progress Note ---
Subjective - Review of Systems Events since last encounter: no change no fever Objective - Results Result Diagrams: 07/25/18 08:54 07/26/18 07:45 Recent Labs: Laboratory Last Values WBC 6.7 Th/cmm (4.8-10.8) 07/25/18 08:54 RBC 3.98 Mil/cmm (3.80-5.20) 07/25/18 08:54 Hgb 12.0 gm/dL (12-16) 07/25/18 08:54 Hct 35.8 % (41.0-60) L 07/25/18 08:54 MCV 89.9 fl (81-100) 07/25/18 08:54 MCH 30.2 pg (27.0-31.0) 07/25/18 08:54 MCHC Differential 33.6 pg (28.0-36.0) 07/25/18 08:54 RDW 13.5 % (11.5-20.0) 07/25/18 08:54 Plt Count 219 Th/cmm (150-400) 07/25/18 08:54 MPV 7.8 fl 07/25/18 08:54 Neutrophils % 58.9 % (40.0-80.0) 07/25/18 08:54 Lymphocytes % 26.1 % (20.0-50.0) 07/25/18 08:54 Monocytes % 8.1 % (2.0-10.0) 07/25/18 08:54 Eosinophils % 6.4 % (0.0-5.0) H 07/25/18 08:54 Basophils % 0.5 % (0.0-2.0) 07/25/18 08:54 PT 10.0 SECONDS (9.5-11.5) 07/21/18 00:05 INR 0.96 (0.5-1.4) 07/21/18 00:05 PTT (Actin FS) 24.4 SECONDS (26.0-38.0) L 07/21/18 00:05 Sodium 138 mEq/L (136-145) 07/25/18 08:54 Potassium 3.5 mEq/L (3.5-5.1) 07/25/18 08:54 Chloride 104 mEq/L (98-107) 07/25/18 08:54 Carbon Dioxide 27.2 mEq/L (21.0-31.0) 07/25/18 08:54 Anion Gap 10.3 (7.0-16.0) 07/25/18 08:54 BUN 10 mg/dL (7-25) 07/26/18 07:45 Creatinine 0.6 mg/dL (0.6-1.2) 07/26/18 07:45 Est GFR ( Amer) TNP 07/25/18 08:54 Est GFR (Non-Af Amer) TNP 07/25/18 08:54 BUN/Creatinine Ratio 22.0 07/25/18 08:54 Glucose 98 mg/dL (70-105) 07/25/18 08:54 POC Glucose 135 MG/DL (70 - 105) H 07/26/18 13:07 Whole Bld Lactic Acid 1.16 mmol/L (0.60-1.99) 07/21/18 00:05 Calcium 9.4 mg/dL (8.6-10.3) 07/25/18 08:54 Total Bilirubin 0.5 mg/dL (0.3-1.0) 07/21/18 00:05 AST 30 U/L (13-39) 07/21/18 00:05 ALT 18 U/L (7-52) 07/21/18 00:05 Alkaline Phosphatase 159 U/L (34-104) H 07/21/18 00:05 Creatine Kinase 29 U/L (30-223) L 07/21/18 00:05 Troponin I 0.02 ng/mL (0.01-0.05) 07/21/18 00:05 Total Protein 7.9 gm/dL (6.0-8.3) 07/21/18 00:05 Albumin 3.7 gm/dL (3.7-5.3) 07/21/18 00:05 Globulin 4.2 gm/dL 07/21/18 00:05 Albumin/Globulin Ratio 0.9 (1.0-1.8) L 07/21/18 00:05 Urine Source MIDSTREAM 07/22/18 05:25 Urine Color YELLOW 07/22/18 05:25 Urine Clarity CLEAR (CLEAR) 07/22/18 05:25 Urine pH 6.0 (4.6 - 8.0) 07/22/18 05:25 Ur Specific Ash <= 1.005 (1.005-1.030) 07/22/18 05:25 Urine Protein NEGATIVE mg/dL (NEGATIVE) 07/22/18 05:25 Urine Glucose (UA) NEGATIVE mg/dL (NEGATIVE) 07/22/18 05:25 Urine Ketones NEGATIVE mg/dL (NEGATIVE) 07/22/18 05:25 Urine Blood NEGATIVE (NEGATIVE) 07/22/18 05:25 Urine Nitrate NEGATIVE (NEGATIVE) 07/22/18 05:25 Urine Bilirubin NEGATIVE (NEGATIVE) 07/22/18 05:25 Urine Urobilinogen 0.2 E.U./dL (0.2 - 1.0) 07/22/18 05:25 Ur Leukocyte Esterase NEGATIVE (NEGATIVE) 07/22/18 05:25 Urine RBC 0-2 /hpf (0-5) 07/22/18 05:25 Urine WBC 2-5 /hpf (0-5) 07/22/18 05:25 Ur Epithelial Cells OCCASIONAL /lpf (FEW) 07/22/18 05:25 Urine Bacteria FEW /hpf (NONE SEEN) 07/22/18 05:25 Vancomycin Trough 15.7 ug/mL (5-10) H 07/26/18 07:45 Random Vancomycin 9.6 ug/mL (5.0-40.0) 07/22/18 08:55 - Physical Exam Vitals and I&O: Vital Signs Temp 98.3 F 07/26/18 15:33 Pulse 60 07/26/18 15:33 Resp 18 07/26/18 15:33 BP 142/70 07/26/18 15:33 Pulse Ox 98 07/26/18 15:33 Intake & Output 07/25/18 07/26/18 07/26/18 18:59 06:59 18:59 Intake Total 1100 550 Balance 1100 550 Weight (lbs) 64.954 kg 64.864 kg Intake: Intake, IV Amount 250 250 Vancomycin HCl 0.75 gm In 250 250 Sodium Chloride 0.9% 250 ml @ 165 mls/hr IV Q12HR [facility] Rx#:[id number] Oral 850 300 Other: # Voids 5 3 # Bowel Movements 6 Stool Characteristics Soft Soft Brown Weight Source Bedscale Estimated Active Medications: Current Medications Acetaminophen (Tylenol Extra Strength) 1,000 mg PO Q4H PRN PRN Reason: Pain (Moderate) Stop: 09/20/18 08:04 Acetaminophen (Tylenol) 650 mg PO Q4H PRN PRN Reason: Mild Pain or Fever >101 Acetaminophen/Hydrocodone Bitart ([place] 10 Mg/325 Mg) 1 tab PO Q8H PRN PRN Reason: Pain (Severe) Stop: 09/20/18 08:04 Last Admin: 07/22/18 23:07 Dose: 1 tab Atorvastatin Calcium (Lipitor) 20 mg PO HS ARMANI Stop: 09/20/18 20:59 Last Admin: 07/25/18 20:20 Dose: 20 mg Bisacodyl (Dulcolax 10 Mg Supp) 10 mg RC DAILY PRN PRN Reason: Constipation Stop: 09/20/18 08:04 Calcium Carbonate (Calcium Carb) 1,200 mg PO DAILY ARMANI Stop: 09/20/18 08:59 Last Admin: 07/26/18 08:34 Dose: 1,200 mg Cyanocobalamin (Vitamin B12) 1,000 mcg PO DAILY ARMANI Stop: 09/20/18 08:59 Last Admin: 07/26/18 08:24 Dose: 1,000 mcg Dextrose (D50w) 25 ml IVP STAT PRN PRN PRN Reason: blood sugar below 60 Stop: 09/20/18 08:04 Docusate Sodium (Colace) 100 mg PO DAILY [facility] Stop: 09/20/18 08:59 Last Admin: 07/26/18 08:26 Dose: 100 mg Enalapril Maleate (Vasotec) 5 mg PO DAILY ARMANI Stop: 09/20/18 08:59 Last Admin: 07/26/18 08:25 Dose: 5 mg Famotidine (Pepcid) 20 mg PO QDAC ARMANI Stop: 09/21/18 07:29 Last Admin: 07/26/18 06:43 Dose: 20 mg Folic Acid (Folate) 1 mg PO DAILY ARMANI Stop: 09/20/18 08:59 Last Admin: 07/26/18 10:44 Dose: 1 mg Glucagon (Glucagen) 1 mg IM STAT PRN PRN PRN Reason: blood sugar below 60 Vancomycin HCl 0.75 gm/ Sodium (Chloride) 250 mls @ 165 mls/hr IV Q12HR ARMANI Stop: 09/22/18 20:59 Last Admin: 09/17/18 08:34 Dose: 165 mls/hr Meropenem 1 gm/ Sodium (Chloride) 100 mls @ 100 mls/hr IV Q12H [facility] Stop: 09/23/18 15:59 Last Admin: 07/25/18 17:25 Dose: 100 mls/hr Insulin Aspart (Novolog Insulin Sliding Scale) 0 units SUBQ ACHS ARMANI; Protocol Stop: 09/20/18 20:59 Last Admin: 07/25/18 21:24 Dose: 2 units Insulin Detemir (Levemir Insulin) 10 units SUBQ HS ARMANI Stop: 09/20/18 20:59 Last Admin: 07/25/18 21:22 Dose: 10 units Lactobacillus Rhamnosus (Culturelle 15b) 1 each PO DAILY [facility] Stop: 09/20/18 08:59 Last Admin: 07/26/18 08:26 Dose: 1 each Magnesium Hydroxide (Milk Of Magnesia) 30 ml PO HS PRN PRN Reason: Constipation Stop: 09/20/18 08:04 Miscellaneous (Vancomycin Iv Per Pharmacy) 1 ea MC DAILY [facility] Stop: 09/20/18 08:59 Miscellaneous (Probiotic Screen) 1 ea PRN PRN PRN Reason: PROTOCOL Stop: 09/22/18 10:29 Ondansetron HCl (Zofran Odt) 4 mg PO Q6H PRN PRN Reason: Nausea / Vomiting Stop: 09/20/18 08:04 Polyethylene Glycol (Miralax) 17 gm PO BID [facility] Stop: 09/20/18 08:59 Last Admin: 07/26/18 08:26 Dose: 17 gm Sodium Phosphate (Fleet Enema) 135 ml RC Q2D PRN PRN Reason: Constipation Stop: 09/20/18 08:04 Vitamin D (Vitamin D3) 2,000 iu PO DAILY [facility] Stop: 09/20/18 10:59 Last Admin: 07/26/18 08:24 Dose: 2,000 iu
[2018-07-26] MEDS ORDERED: INSULIN ASPART SLIDING SCALE 100 UNITS/ML UNIT SUBQ SCH (17:00)
--- NOTE | 2018-08-02 16:24 | Discharge Summary ---
DATE OF DISCHARGE: 07/26/2018 HOSPITAL COURSE: The patient was admitted on 07/27/2018 and the patient was discharged on 07/26/2018 to [facility]. The patient was admitted to [facility]. The patient known to have history of recent hip surgery. Next day, the patient had cellulitis on surgical site ____ hyperglycemia, treated with IV antibiotics, so the patient with a final diagnosis of cellulitis, improved on the surgical site, status post hip surgery, history of diabetes, hyperlipidemia, dementia and arthritis ____ following the patient. CONDITION AT TIME OF DISCHARGE: Stable. MEDICATIONS: See the reconciliation sheet. JOB# [id number]
== END 2018-07-26 18:35 | DRG 863 ==
LOC: ER 22:36 → MSI 07-22 02:15 → TELE 07-22 18:13 → MSI 07-25 16:33
PROVIDERS: ADMIT Internal Medicine; ATTEND Internal Medicine
DX: T81.4XXA Infection following a procedure, initial encounter (principal); L03.211 Cellulitis of face; L03.115 Cellulitis of right lower limb; F03.90 Unspecified dementia, unspecified severity, without behavioral disturbance, psychotic disturbance, mood disturbance, and anxiety; M19.90 Unspecified osteoarthritis, unspecified site; I10 Essential (primary) hypertension; E78.5 Hyperlipidemia, unspecified; E11.65 Type 2 diabetes mellitus with hyperglycemia; B96.20 Unspecified Escherichia coli [E. coli] as the cause of diseases classified elsewhere; Z16.12 Extended spectrum beta lactamase (ESBL) resistance; Y83.8 Other surgical procedures as the cause of abnormal reaction of the patient, or of later complication, without mention of misadventure at the time of the procedure; Y92.89 Other specified places as the place of occurrence of the external cause; Z88.8 Allergy status to other drugs, medicaments and biological substances; Z83.3 Family history of diabetes mellitus; Z82.49 Family history of ischemic heart disease and other diseases of the circulatory system; Z88.6 Allergy status to analgesic agent; Z79.4 Long term (current) use of insulin
CPT/HCPCS: 36415-UA; 80048-TC; 80053-TC; 80202-TC; 81001-TC; 82550-TC; 82565-TC; 82948-90; 83036-90; 83605; 84484-TC; 84520-TC; 85025-TC; 85610-TC; 85730-TC; 87070-90; 87086-90; 93005; J1815; J2185; J3370; Z7610